=== PATIENT | male | born 1950 | race Caucasian/White ===

== ENCOUNTER 2016-07-05 22:06 | Inpatient (IN) | payer MEDICARE, OTHER ==
[~2016-07-05] VITALS: Ht 180.3 cm; Wt 127.1 kg
[~2016-07-05 22:06] MED LIST: AMITRIPTYLINE H25 M1 PO; ASPIRIN 81M81 MG/TA2 PO; ATIVAN 0.50.5 MG/TAB PO; B & O SUPPRETTE1 SU1 RC; BACTRIM DS 8001 TAB PO; CECLOR PULVULE500 MG PO; CEFTIN500 MG PO; COLACE 100100 MG/CAP PO; COZAAR100 MG PO; CRANBERRY1 CAP PO; CYMBALTA 30MG30 MG PO; DESYREL 50MG50 MG PO; DIFLUCAN 100MG100 MG PO; DIFLUCAN200 MG PO; DULCOLAX S10 MG/SUPP RC; FISH OIL 1000MG1 CAP PO; FISH OIL PO; GLUCOSAMINE; GLYCERIN S1 SUPP.REC RC; HCTZ 25MG TAB25 MG PO; HYZAAR 25 MG-101 TAB PO; JANUVIA 100MG100 MG PO; KLOR-CON 1010 MEQ PO; KLOR-CON M2020 MEQ PO; LANTUS100 U/ML SC; LASIX 40MG TABL40 MG PO; LEVAQUIN 750MG750 M1 PO; LIPITOR 10MG10 MG PO; LOVENOX 4040 MG/0.4 SQ; MELATONIN3 MG PO; MIRALAX PA17 GM/Dose PO; NEURONTIN100 MG/CAP PO; NEURONTIN300 MG/CAP PO; NEUROPATHY SUPPORT; NIZORAL CREAM15 GM TP; NOVLOG SQ; OMNICEF 300MG300 MG PO; PERFECT BIOTICS PO; PHENERGAN W/CO120 ML PO; PREDNISONE10 MG PO; PREDNISONE20 MG PO; PREVACID30 MG PO; PRIL40 PO; PROBIOTIC-MAJOR PO; RITE AID KRILL500 MG PO; SENOKOT S 50 MG1 TAB PO; SENOKOT8.6 MG PO; STIOLTO RESPIMAT4 GM IH; STOOL SOFTENER100 M2 PO; THE MEDICINE S200 M2 PO; THEO-24 20200 MG/CAP PO; TUMS500 MG PO; ULTRAM 50MG TAB50 MG PO; VITAMIN D 1001000 IU PO; VITAMIN D32000 I1 PO; VITAMIN K0.1 MG PO; VOLTAREN 75 DR75 MG PO; ZANAFLEX CAPSULE4 MG PO; ZOFRAN 4MG T4 MG/TAB PO; ZOLOFT 100MG100 MG PO; [UNRECOGNIZED DRUG - OTHER] PO
[2016-07-05 23:34] LABS: HEMATOCRIT 39.6 % (42.0-52.0); HEMOGLOBIN 13.1 g/dl (13.5-18.0); MEAN CELL VOLUME 87 fl (80.0-100.0); MEAN CORPUSCULAR HEMOGLOBIN 29 pg (27.0-31.0); MEAN CORPUSCULAR HGB CONC 33 g/dl (33.0-37.0); MEAN PLATELET VOLUME 9.2 fl (7.4-10.4); PLATELET COUNT 149 K/mm3 (130-400); RED BLOOD COUNT 4.54 M/mm3 (4.20-5.60)
[2016-07-05 23:36] LABS: WHITE BLOOD COUNT 20.2 K/mm3 (4.8-10.8)
[2016-07-05 23:37] LABS: ADD PATHOLOGY DIFF REVIEW NO
[2016-07-05 23:47] LABS: ADJUSTED CALCIUM 8.9 mg/dL (8.4-10.2); ALBUMIN 4.1 gm/dL (3.5-5.0); BILIRUBIN,TOTAL 1.2 mg/dL (0.0-1.0); CREATININE, serum 0.94 mg/dL (0.66-1.25); POTASSIUM 3.6 mmol/L (3.4-5.0); TOTAL PROTEIN 6.6 gm/dL (6.4-8.2)
[2016-07-06 00:47] LABS: BAND 38 % (0-10); NEUTROPHILS 57 % (42.0-75.2); TOTAL CELLS COUNTED 100
[2016-07-06 01:53] VITALS: BP 123/67; PULSE 101
[2016-07-06 04:20] VITALS: BP 147/66; PULSE 95; TEMP 97.9
[2016-07-06 07:25] LABS: HEMATOCRIT 37.7 % (42.0-52.0); HEMOGLOBIN 12.4 g/dl (13.5-18.0); MEAN CELL VOLUME 88 fl (80.0-100.0); MEAN CORPUSCULAR HEMOGLOBIN 29 pg (27.0-31.0); MEAN CORPUSCULAR HGB CONC 33 g/dl (33.0-37.0); MEAN PLATELET VOLUME 9.5 fl (7.4-10.4); PLATELET COUNT 141 K/mm3 (130-400); RED BLOOD COUNT 4.31 M/mm3 (4.20-5.60); REDCELL DISTRIBUTION WIDTH-CV 15.1 % (11.5-14.5); WHITE BLOOD COUNT 18.7 K/mm3 (4.8-10.8)
[2016-07-06 07:49] LABS: ADD PATHOLOGY DIFF REVIEW NO
[2016-07-06 07:53] LABS: CALCIUM 8.5 mg/dL (8.4-10.2); CREATININE, serum 0.84 mg/dL (0.66-1.25); POTASSIUM 3.3 mmol/L (3.4-5.0)
[2016-07-06 08:09] VITALS: BP 125/72; PULSE 107; TEMP 99.4
[2016-07-06 09:05] LABS: ANISOCYTOSIS 1+; BAND 5 % (0-10); EOSINOPHIL 1 % (0-4); NEUTROPHILS 75 % (42.0-75.2); PLATELET ESTIMATE NORMAL (NORMAL); POLYCHROMASIA 1+; TOTAL CELLS COUNTED 100
[2016-07-06 11:53] VITALS: BP 136/66; PULSE 106; TEMP 98.3
[2016-07-06 15:36] VITALS: BP 128/76; PULSE 96; TEMP 98
[2016-07-06 19:30] VITALS: BP 134/77; PULSE 101; TEMP 98.6
[2016-07-07] VITALS (7 sets, daily range): BP systolic 109–156; BP diastolic 53–79; PULSE 74–97; TEMP 93–98.7
[2016-07-07 14:07] LABS: BASO % 0.3 % (0.0-2.0); EOS # 0.1 (0.0-0.7); EOS % 0.7 % (0-4.0); GRAN # 9.2 (1.4-6.5); GRAN % 86.3 % (42.2-75.2); HEMATOCRIT 37.3 % (42.0-52.0); HEMOGLOBIN 12.1 g/dl (13.5-18.0); LYMPH # 0.8 (1.2-3.4); LYMPH % 7.7 % (20.0-51.0); MEAN CELL VOLUME 89 fl (80.0-100.0); MEAN CORPUSCULAR HEMOGLOBIN 29 pg (27.0-31.0); MEAN CORPUSCULAR HGB CONC 32 g/dl (33.0-37.0); MEAN PLATELET VOLUME 9.3 fl (7.4-10.4); MONO # 0.5 (0.1-0.6); MONO % 4.2 % (1.7-9.3); PLATELET COUNT 143 K/mm3 (130-400); REDCELL DISTRIBUTION WIDTH-CV 15.3 % (11.5-14.5); WHITE BLOOD COUNT 10.7 K/mm3 (4.8-10.8)
[2016-07-07 14:15] LABS: ADJUSTED CALCIUM 8.6 mg/dL (8.4-10.2); ALBUMIN 3.7 gm/dL (3.5-5.0); BILIRUBIN,TOTAL 0.8 mg/dL (0.0-1.0); CALCIUM 8.4 mg/dL (8.4-10.2); CREATININE, serum 0.9 mg/dL (0.66-1.25); POTASSIUM 3.7 mmol/L (3.4-5.0); TOTAL PROTEIN 6.4 gm/dL (6.4-8.2)
[2016-07-08 06:36] VITALS: BP 152/85; PULSE 84; TEMP 98.4
[2016-07-08 08:43] VITALS: BP 159/84; PULSE 76; TEMP 98.3
[2016-07-08 12:05] VITALS: BP 141/72; PULSE 72; TEMP 98.1
[2016-07-08] MEDS ORDERED: DOXYCYCLINE 10100 MG PO (15:42)
== END 2016-07-08 17:01 | disposition home or self-care (01) | DRG 603 ==
LOC: COL.ER 22:06 → MEDICAL 23:58
PROVIDERS: Emergency Medicine; Family Medicine; Internal Medicine Cardiovascular Disease
DX: L03.116 Cellulitis of left lower limb (principal); G37.3 Acute transverse myelitis in demyelinating disease of central nervous system; L03.115 Cellulitis of right lower limb; A46 Erysipelas; J44.9 Chronic obstructive pulmonary disease, unspecified; K21.9 Gastro-esophageal reflux disease without esophagitis; Z87.891 Personal history of nicotine dependence
CPT/HCPCS: 99223-AI; 99233-AI; 99239; J1650; J2543; J3370; J7030; J7050; J7512

== ENCOUNTER 2016-12-30 13:49 | Inpatient (IN) | payer MEDICARE, OTHER ==
[~2016-12-30] VITALS: Ht 180.3 cm; Wt 114.8 kg
[~2016-12-30 13:49] MED LIST changes: +DOXYCYCLINE 10100 MG PO
[2016-12-30 14:58] LABS: BASO # 0.1 (0.0-0.2); BASO % 0.3 % (0.0-2.0); EOS # 0.1 (0.0-0.7); EOS % 0.5 % (0-4.0); GRAN # 15.3 (1.4-6.5); GRAN % 87.7 % (42.2-75.2); HEMATOCRIT 38.5 % (42.0-52.0); HEMOGLOBIN 12.8 g/dl (13.5-18.0); LYMPH % 5.5 % (20.0-51.0); MEAN CELL VOLUME 87 fl (80.0-100.0); MEAN CORPUSCULAR HEMOGLOBIN 29 pg (27.0-31.0); MEAN CORPUSCULAR HGB CONC 33 g/dl (33.0-37.0); MEAN PLATELET VOLUME 9.8 fl (7.4-10.4); MONO % 5.5 % (1.7-9.3); PLATELET COUNT 213 K/mm3 (130-400); RED BLOOD COUNT 4.41 M/mm3 (4.20-5.60); WHITE BLOOD COUNT 17.4 K/mm3 (4.8-10.8)
[2016-12-30 15:02] LABS: INR 1.1 (0.8-3.0); PROTHROMBIN TIME 11.8 SECONDS (9.7-12.8)
[2016-12-30 15:05] LABS: PARTIAL THROMBOPLASTIN TIME 26.4 SECONDS (26.0-37.0)
[2016-12-30 15:07] LABS: ADJUSTED CALCIUM 8.9 mg/dL (8.4-10.2); ALANINE AMINOTRANSFERASE 45 U/L (21-72); ALBUMIN 4.5 gm/dL (3.5-5.0); ALKALINE PHOSPHATASE 105 U/L (50-136); ANION GAP 13 mmol/L (7-16); BILIRUBIN,TOTAL 0.7 mg/dL (0.0-1.0); BLOOD UREA NITROGEN 22 mg/dL (9-20); CALCIUM 9.3 mg/dL (8.4-10.2); CARBON DIOXIDE 28 mmol/L (22-30); CHLORIDE 98 mmol/L (98-107); CREATININE, serum 1.23 mg/dL (0.66-1.25); GLUCOSE 115 mg/dL (74-106); POTASSIUM 3.8 mmol/L (3.4-5.0); SODIUM 139 mmol/L (137-145); TOTAL PROTEIN 7.4 gm/dL (6.4-8.2)
[2016-12-30 15:21] LABS: TROPONIN-I < 0.012 ng/mL (0.000-0.034)
[2016-12-30] MEDS ORDERED: LASIX 40MG TABL40 MG PO (15:53)
[2016-12-30] MEDS ORDERED: LIPITOR 10MG10 MG PO (15:53)
[2016-12-30] MEDS ORDERED: ZOLOFT 100MG100 MG PO (15:54)
[2016-12-30] MEDS ORDERED: PRIL40 PO (15:54)
[2016-12-30] MEDS ORDERED: PROBIOTIC FORMU1 CAP PO (15:55)
[2016-12-30] MEDS ORDERED: ASPIRIN 81M81 MG/TA2 PO (15:55)
[2016-12-30] MEDS ORDERED: THEO-DUR 2200 MG/TAB PO (15:56)
[2016-12-30] MEDS ORDERED: OMEGA-3 1000 MG1 CAP PO (15:56)
[2016-12-30] MEDS ORDERED: HYZAAR 25 MG-101 TAB PO (15:57)
[2016-12-30] MEDS ORDERED: ZANAFLEX 4MG TAB4 MG PO (15:58)
[2016-12-30] MEDS ORDERED: STIOLTO RESPIMAT4 GM IH (15:58)
[2016-12-30] MEDS ORDERED: VOLTAREN 75 DR75 MG PO (15:58)
[2016-12-30] MEDS ORDERED: AMITRIPTYLINE H25 M1 PO (15:59)
[2016-12-30] MEDS ORDERED: VITAMIN K0.1 MG PO (15:59)
[2016-12-30] MEDS ORDERED: THE MEDICINE S200 M2 PO (16:00)
[2016-12-30] MEDS ORDERED: VITAMIN D31000 I1 PO (16:00)
[2016-12-30] MEDS ORDERED: GLYCERIN S1 SUPP.REC RC (16:01)
[2016-12-30 16:39] LABS: COLLECTION METHOD CATHETER
[2016-12-30 17:05] LABS: BUDDING YEAST Present /hpf; MUCOUS Present /lpf; PH 7 (5-8); SQUAMOUS EPITHELIAL 0-2 /hpf; URINE APPEARANCE Hazy; URINE BACTERIA Rare /hpf; URINE BILIRUBIN Negative (NEGATIVE); URINE BLOOD Negative (NEGATIVE); URINE COLOR Yellow; URINE GLUCOSE Negative (NEGATIVE); URINE KETONE Negative (NEGATIVE); URINE LEUKOCYTE ESTERASE 3+ (NEGATIVE); URINE PROTEIN(semi-quant) Negative (NEGATIVE); URINE UROBILINOGEN Negative (NEGATIVE)
[2016-12-30 17:12] LABS: URINE WBC >50 /hpf
[2016-12-30 20:29] VITALS: BP 125/58; PULSE 103; TEMP 98.3
[2016-12-31] VITALS (8 sets, daily range): BP systolic 108–144; BP diastolic 45–66; PULSE 70–103; TEMP 97.6–98.8
[2016-12-31 06:59] LABS: BASO % 0.3 % (0.0-2.0); EOS # 0.2 (0.0-0.7); GRAN # 8.2 (1.4-6.5); GRAN % 71.5 % (42.2-75.2); LYMPH # 2.2 (1.2-3.4); LYMPH % 19.3 % (20.0-51.0); MEAN CELL VOLUME 89 fl (80.0-100.0); MEAN CORPUSCULAR HGB CONC 32 g/dl (33.0-37.0); MONO # 0.7 (0.1-0.6); MONO % 6.5 % (1.7-9.3); PLATELET COUNT 178 K/mm3 (130-400); RED BLOOD COUNT 3.93 M/mm3 (4.20-5.60); WHITE BLOOD COUNT 11.4 K/mm3 (4.8-10.8)
[2016-12-31 07:00] LABS: HEMATOCRIT 34.8 % (42.0-52.0); HEMOGLOBIN 11.2 g/dl (13.5-18.0); MEAN CORPUSCULAR HEMOGLOBIN 28 pg (27.0-31.0)
[2016-12-31 07:20] LABS: CALCIUM 8.1 mg/dL (8.4-10.2); CREATININE, serum 0.96 mg/dL (0.66-1.25); POTASSIUM 3.4 mmol/L (3.4-5.0)
[2017-01-01 03:46] VITALS: BP 110/52; BP 87/55; PULSE 62; TEMP 97.8
[2017-01-01 06:38] LABS: BASO % 0.3 % (0.0-2.0); EOS # 0.3 (0.0-0.7); EOS % 4.3 % (0-4.0); GRAN # 4.1 (1.4-6.5); GRAN % 54.8 % (42.2-75.2); LYMPH # 2.3 (1.2-3.4); LYMPH % 31.2 % (20.0-51.0); MEAN CELL VOLUME 90 fl (80.0-100.0); MEAN CORPUSCULAR HGB CONC 32 g/dl (33.0-37.0); MEAN PLATELET VOLUME 9.8 fl (7.4-10.4); MONO # 0.7 (0.1-0.6); MONO % 8.9 % (1.7-9.3); PLATELET COUNT 177 K/mm3 (130-400); RED BLOOD COUNT 3.66 M/mm3 (4.20-5.60); WHITE BLOOD COUNT 7.5 K/mm3 (4.8-10.8)
[2017-01-01 06:41] LABS: HEMATOCRIT 32.8 % (42.0-52.0); HEMOGLOBIN 10.5 g/dl (13.5-18.0); MEAN CORPUSCULAR HEMOGLOBIN 29 pg (27.0-31.0)
[2017-01-01 06:52] LABS: CALCIUM 8.2 mg/dL (8.4-10.2); CREATININE, serum 0.87 mg/dL (0.66-1.25); POTASSIUM 3.7 mmol/L (3.4-5.0)
[2017-01-01 07:00] VITALS: BP 123/64; PULSE 75; TEMP 97.7
[2017-01-01] MEDS ORDERED: CIPRO 500MG TA500 MG PO (09:27)
[2017-01-01 11:10] VITALS: BP 142/71; PULSE 76; TEMP 97.7
== END 2017-01-01 11:47 | disposition home or self-care (01) | DRG 872 ==
LOC: COL.ER 13:49 → MEDICAL 17:21
PROVIDERS: Emergency Medicine; Family Medicine; Physician Assistant
DX: A41.9 Sepsis, unspecified organism (principal); N39.0 Urinary tract infection, site not specified; G37.3 Acute transverse myelitis in demyelinating disease of central nervous system; N17.9 Acute kidney failure, unspecified; J44.9 Chronic obstructive pulmonary disease, unspecified; I10 Essential (primary) hypertension; K21.9 Gastro-esophageal reflux disease without esophagitis; E78.5 Hyperlipidemia, unspecified; N31.9 Neuromuscular dysfunction of bladder, unspecified; Z87.891 Personal history of nicotine dependence
CPT/HCPCS: 99222-AI; 99231-AI; 99239; G0378; G8978-GP; G8979-GP; J0696; J1650; J7030; Q9967

== ENCOUNTER 2017-01-15 14:42 | Outpatient (RCR) | payer MEDICARE, OTHER ==
[~2017-01-15 14:42] MED LIST changes: +CIPRO 500MG TA500 MG PO; +OMEGA-3 1000 MG1 CAP PO; +PROBIOTIC FORMU1 CAP PO; +THEO-DUR 2200 MG/TAB PO; +VITAMIN D31000 I1 PO; +ZANAFLEX 4MG TAB4 MG PO
== END 2017-01-16 14:51 ==
LOC: MKS.ESL.PT 14:42
DX: G37.3 Acute transverse myelitis in demyelinating disease of central nervous system (principal)
CPT/HCPCS: G8978-GP; G8979-GP

== ENCOUNTER 2017-01-28 18:33 | Inpatient (IN) | payer MEDICARE, OTHER ==
[~2017-01-28] VITALS: Ht 180.3 cm; Wt 122.6 kg
[2017-01-28 19:23] LABS: BASO % 0.2 % (0.0-2.0); EOS # 0.1 (0.0-0.7); EOS % 0.8 % (0-4.0); GRAN # 13.9 (1.4-6.5); GRAN % 86.1 % (42.2-75.2); HEMATOCRIT 40.5 % (42.0-52.0); HEMOGLOBIN 13.4 g/dl (13.5-18.0); LYMPH # 0.9 (1.2-3.4); LYMPH % 5.6 % (20.0-51.0); MEAN CELL VOLUME 87 fl (80.0-100.0); MEAN CORPUSCULAR HEMOGLOBIN 29 pg (27.0-31.0); MEAN CORPUSCULAR HGB CONC 33 g/dl (33.0-37.0); MEAN PLATELET VOLUME 9.6 fl (7.4-10.4); MONO # 1.2 (0.1-0.6); MONO % 7.1 % (1.7-9.3); PLATELET COUNT 208 K/mm3 (130-400); RED BLOOD COUNT 4.67 M/mm3 (4.20-5.60); WHITE BLOOD COUNT 16.1 K/mm3 (4.8-10.8)
[2017-01-28 19:34] LABS: COLLECTION METHOD CATHETER
[2017-01-28 19:36] LABS: ADJUSTED CALCIUM 8.5 mg/dL (8.4-10.2); ALBUMIN 4.9 gm/dL (3.5-5.0); BILIRUBIN,TOTAL 0.6 mg/dL (0.0-1.0); CALCIUM 9.2 mg/dL (8.4-10.2); POTASSIUM 3.1 mmol/L (3.4-5.0); TOTAL PROTEIN 7.7 gm/dL (6.4-8.2)
[2017-01-28 19:37] LABS: C-REACTIVE PROTEIN 0.5 mg/dL (0.0-0.9)
[2017-01-28 19:43] LABS: MUCOUS Present /lpf; PH 6 (5-8); SQUAMOUS EPITHELIAL 0-2 /hpf; URINE APPEARANCE Clear; URINE BACTERIA Rare /hpf; URINE BILIRUBIN Negative (NEGATIVE); URINE BLOOD Negative (NEGATIVE); URINE COLOR Yellow; URINE GLUCOSE Negative (NEGATIVE); URINE KETONE Negative (NEGATIVE); URINE LEUKOCYTE ESTERASE 3+ (NEGATIVE); URINE PROTEIN(semi-quant) Negative (NEGATIVE); URINE RBC 0-2 /hpf; URINE UROBILINOGEN Negative (NEGATIVE)
[2017-01-28 19:44] LABS: URINE WBC >50 /hpf
[2017-01-28 22:17] LABS: MAGNESIUM 1.7 mg/dL (1.6-2.3)
[2017-01-28 23:21] VITALS: BP 101/64; PULSE 96; TEMP 98.5
[2017-01-29 05:24] VITALS: BP 114/65; PULSE 87; TEMP 98
[2017-01-29 07:04] LABS: BASO % 0.3 % (0.0-2.0); EOS # 0.3 (0.0-0.7); GRAN # 8.7 (1.4-6.5); GRAN % 69.6 % (42.2-75.2); LYMPH # 2.4 (1.2-3.4); LYMPH % 19.3 % (20.0-51.0); MEAN CELL VOLUME 88 fl (80.0-100.0); MEAN CORPUSCULAR HGB CONC 32 g/dl (33.0-37.0); MONO # 1.1 (0.1-0.6); MONO % 8.4 % (1.7-9.3); PLATELET COUNT 200 K/mm3 (130-400); RED BLOOD COUNT 4.14 M/mm3 (4.20-5.60); WHITE BLOOD COUNT 12.6 K/mm3 (4.8-10.8)
[2017-01-29 07:06] LABS: HEMATOCRIT 36.6 % (42.0-52.0); HEMOGLOBIN 11.8 g/dl (13.5-18.0); MEAN CORPUSCULAR HEMOGLOBIN 29 pg (27.0-31.0)
[2017-01-29 07:18] LABS: CALCIUM 8.5 mg/dL (8.4-10.2); CREATININE, serum 0.91 mg/dL (0.66-1.25); POTASSIUM 3.5 mmol/L (3.4-5.0)
[2017-01-29 08:29] VITALS: BP 125/66; PULSE 89; TEMP 97.6
[2017-01-29 14:12] VITALS: BP 134/65; PULSE 80; TEMP 98
[2017-01-29 17:03] VITALS: BP 141/63; PULSE 83; TEMP 98.2
[2017-01-29 22:08] VITALS: BP 142/75; PULSE 76; TEMP 98.2
[2017-01-30] VITALS (8 sets, daily range): BP systolic 95–150; BP diastolic 46–78; PULSE 70–94; TEMP 97.7–98.4
[2017-01-30 06:59] LABS: BASO % 0.1 % (0.0-2.0); EOS # 0.3 (0.0-0.7); EOS % 4.1 % (0-4.0); GRAN # 4.4 (1.4-6.5); GRAN % 56.1 % (42.2-75.2); LYMPH # 2.4 (1.2-3.4); LYMPH % 30.5 % (20.0-51.0); MEAN CELL VOLUME 90 fl (80.0-100.0); MEAN CORPUSCULAR HGB CONC 32 g/dl (33.0-37.0); MEAN PLATELET VOLUME 9.8 fl (7.4-10.4); MONO # 0.7 (0.1-0.6); MONO % 8.8 % (1.7-9.3); PLATELET COUNT 171 K/mm3 (130-400); RED BLOOD COUNT 4.05 M/mm3 (4.20-5.60); WHITE BLOOD COUNT 7.8 K/mm3 (4.8-10.8)
[2017-01-30 07:06] LABS: HEMOGLOBIN 11.6 g/dl (13.5-18.0); MEAN CORPUSCULAR HEMOGLOBIN 29 pg (27.0-31.0)
[2017-01-30 07:07] LABS: HEMATOCRIT 36.3 % (42.0-52.0)
[2017-01-30 07:15] LABS: CALCIUM 8.4 mg/dL (8.4-10.2); CREATININE, serum 0.87 mg/dL (0.66-1.25); MAGNESIUM 1.8 mg/dL (1.6-2.3); POTASSIUM 3.9 mmol/L (3.4-5.0)
[2017-01-31 02:07] VITALS: BP 119/55; PULSE 71; TEMP 97.7
[2017-01-31 05:31] VITALS: BP 140/54; BP 151/44; PULSE 71; TEMP 97.6
[2017-01-31 07:34] VITALS: BP 142/73; PULSE 94; TEMP 97.7
[2017-01-31 07:43] LABS: BASO % 0.4 % (0.0-2.0); EOS # 0.4 (0.0-0.7); EOS % 4.9 % (0-4.0); GRAN # 4.4 (1.4-6.5); GRAN % 55.4 % (42.2-75.2); LYMPH # 2.4 (1.2-3.4); LYMPH % 30.8 % (20.0-51.0); MEAN CELL VOLUME 88 fl (80.0-100.0); MEAN CORPUSCULAR HGB CONC 33 g/dl (33.0-37.0); MEAN PLATELET VOLUME 9.9 fl (7.4-10.4); MONO # 0.6 (0.1-0.6); PLATELET COUNT 175 K/mm3 (130-400); RED BLOOD COUNT 4.07 M/mm3 (4.20-5.60); WHITE BLOOD COUNT 7.9 K/mm3 (4.8-10.8)
[2017-01-31 07:45] LABS: HEMATOCRIT 35.6 % (42.0-52.0); HEMOGLOBIN 11.6 g/dl (13.5-18.0); MEAN CORPUSCULAR HEMOGLOBIN 29 pg (27.0-31.0)
[2017-01-31 07:54] LABS: CALCIUM 8.7 mg/dL (8.4-10.2); CREATININE, serum 0.89 mg/dL (0.66-1.25); POTASSIUM 3.8 mmol/L (3.4-5.0)
[2017-01-31 10:36] VITALS: BP 144/75; PULSE 82; TEMP 97.8
[2017-01-31] MEDS ORDERED: BACTRIM DS 8001 TAB PO (11:55)
== END 2017-01-31 13:45 | disposition home or self-care (01) | DRG 699 ==
LOC: COL.ER 18:33 → SURG 20:20
PROVIDERS: Emergency Medicine; Family Medicine; Nurse Practitioner Family; Physician Assistant
DX: T83.518A Infection and inflammatory reaction due to other urinary catheter, initial encounter (principal); N39.0 Urinary tract infection, site not specified; G37.3 Acute transverse myelitis in demyelinating disease of central nervous system; B96.20 Unspecified Escherichia coli [E. coli] as the cause of diseases classified elsewhere; I10 Essential (primary) hypertension; N31.8 Other neuromuscular dysfunction of bladder; E87.6 Hypokalemia; J44.9 Chronic obstructive pulmonary disease, unspecified; Z87.891 Personal history of nicotine dependence
CPT/HCPCS: 99222-AI; 99232-AI; 99239; J0696; J1650; J7030; Q9967

== ENCOUNTER → 2017-07-02 | Outpatient (CLI) | payer MEDICARE, OTHER | LOC: COL.RAD 11:59 | DX: M47.816 Spondylosis without myelopathy or radiculopathy, lumbar region (principal); G95.89 Other specified diseases of spinal cord | CPT/HCPCS: A9585 ==

== ENCOUNTER → 2017-07-29 | Outpatient (CLI) | payer MEDICARE, OTHER | LOC: COL.RAD 10:41 | DX: K22.8 Other specified diseases of esophagus (principal) ==

== ENCOUNTER 2017-08-27 09:57 | Day surgery (SDC) | payer MEDICARE, OTHER ==
[2017-08-27] VITALS (12 sets, daily range): BP systolic 112–146; BP diastolic 62–77; PULSE 91–112; TEMP 98–98.4
[~2017-08-27] VITALS: Ht 180.3 cm; Wt 114.1 kg
[2017-08-27] MEDS ORDERED: AMITRIPTYLINE H50 M1 PO (11:50)
[2017-08-27] MEDS ORDERED: VOLTAREN 75 DR75 MG PO (11:56)
[2017-08-27] MEDS ORDERED: WELLBUTRIN 100100 MG PO (11:56)
[2017-08-27] MEDS ORDERED: MASON NATURAL2000 IU PO (11:58)
[2017-08-28 03:47] VITALS: BP 122/69; PULSE 88; TEMP 98.5
[2017-08-28 07:26] VITALS: BP 131/69; PULSE 93; TEMP 98.3
== END 2017-08-28 11:19 | disposition home health service (06) ==
LOC: SDCO 09:57 → SURG 15:35 → SDCO 08-28 11:19
DX: K42.9 Umbilical hernia without obstruction or gangrene (principal); K44.9 Diaphragmatic hernia without obstruction or gangrene; K21.9 Gastro-esophageal reflux disease without esophagitis; I10 Essential (primary) hypertension; E78.00 Pure hypercholesterolemia, unspecified; F43.10 Post-traumatic stress disorder, unspecified; F41.9 Anxiety disorder, unspecified; F32.9 Major depressive disorder, single episode, unspecified; J44.9 Chronic obstructive pulmonary disease, unspecified; G47.33 Obstructive sleep apnea (adult) (pediatric); F17.210 Nicotine dependence, cigarettes, uncomplicated; E27.40 Unspecified adrenocortical insufficiency; G89.29 Other chronic pain; D64.9 Anemia, unspecified; Z79.82 Long term (current) use of aspirin; Z90.49 Acquired absence of other specified parts of digestive tract; Z85.828 Personal history of other malignant neoplasm of skin
CPT/HCPCS: OP; C1713; J0690; J1100; J1885; J2405; J2704; J3010; J7120

== ENCOUNTER 2017-10-17 11:00 | Observation (INO) | payer MEDICARE, OTHER ==
[2017-10-17] VITALS (9 sets, daily range): BP systolic 121–146; BP diastolic 64–84; PULSE 71–96; TEMP 97.8–99.1
[~2017-10-17] VITALS: Ht 180.3 cm; Wt 116.6 kg
[~2017-10-17 11:00] MED LIST changes: +AMITRIPTYLINE H50 M1 PO; +MASON NATURAL2000 IU PO; +WELLBUTRIN 100100 MG PO
[2017-10-17] MEDS ORDERED: VITAMIN K0.1 MG PO (11:29)
[2017-10-17] MEDS ORDERED: MELATONIN5 M1 SL (11:29)
[2017-10-17] MEDS ORDERED: CEFACLOR500 M2 PO (11:30)
[2017-10-18 00:39] VITALS: BP 117/63; PULSE 99; TEMP 98.3
[2017-10-18 04:48] VITALS: BP 136/67; PULSE 74; TEMP 98.1
[2017-10-18 07:41] VITALS: BP 129/75; PULSE 89; TEMP 98.1
== END 2017-10-18 13:25 | disposition home or self-care (01) ==
LOC: SDCO 11:00 → INPTSU 15:43 → SURG 16:20
DX: N31.2 Flaccid neuropathic bladder, not elsewhere classified (principal); J44.9 Chronic obstructive pulmonary disease, unspecified; I10 Essential (primary) hypertension; G47.30 Sleep apnea, unspecified; Z87.442 Personal history of urinary calculi; G62.9 Polyneuropathy, unspecified; Z79.82 Long term (current) use of aspirin; Z79.899 Other long term (current) drug therapy; Z87.891 Personal history of nicotine dependence
CPT/HCPCS: G0378; J0690; J1100; J2405; J2704; J2765; J3010; J7120

== ENCOUNTER 2017-10-21 15:54 | Observation (INO) | payer MEDICARE, OTHER ==
[~2017-10-21] VITALS: Ht 180.3 cm; Wt 116.7 kg
[~2017-10-21 15:54] MED LIST changes: +CEFACLOR500 M2 PO; +MELATONIN5 M1 SL
[2017-10-30 15:36] VITALS: BP 136/75; PULSE 83; TEMP 98.7
[2017-10-30] MEDS ORDERED: TEGRETOL 2200 MG/TA1 PO (15:57)
[2017-10-30 19:14] VITALS: BP 126/80; PULSE 82; TEMP 98.1
[2017-10-31 03:30] VITALS: BP 143/69; PULSE 95; TEMP 98.9
[2017-10-31 08:13] VITALS: BP 129/78; PULSE 99; TEMP 98.4
[2017-10-31 11:46] VITALS: BP 122/75; PULSE 89; TEMP 98.4
[2017-10-31 14:40] VITALS: BP 127/75; PULSE 90; TEMP 97.9
[2017-10-31 14:45] VITALS: BP 126/75; PULSE 98
[2017-10-31 15:00] VITALS: BP 121/71; PULSE 90
== END 2017-10-31 15:18 | disposition home or self-care (01) ==
LOC: EDSTATUS 10-30 14:00 → SDCO 10-30 14:00 → MEDICAL 10-30 14:07 → SDCO 10-31 14:00 → INPTSU 10-31 14:45
DX: Z12.11 Encounter for screening for malignant neoplasm of colon (principal); K57.30 Diverticulosis of large intestine without perforation or abscess without bleeding; K21.9 Gastro-esophageal reflux disease without esophagitis; K59.00 Constipation, unspecified; F41.9 Anxiety disorder, unspecified; F32.9 Major depressive disorder, single episode, unspecified; J44.9 Chronic obstructive pulmonary disease, unspecified; G47.33 Obstructive sleep apnea (adult) (pediatric); R19.7 Diarrhea, unspecified; F43.10 Post-traumatic stress disorder, unspecified; E78.00 Pure hypercholesterolemia, unspecified; G89.29 Other chronic pain; K44.9 Diaphragmatic hernia without obstruction or gangrene; D64.9 Anemia, unspecified; K62.5 Hemorrhage of anus and rectum; G37.3 Acute transverse myelitis in demyelinating disease of central nervous system; R26.81 Unsteadiness on feet; Z79.82 Long term (current) use of aspirin; Z90.49 Acquired absence of other specified parts of digestive tract; Z98.890 Other specified postprocedural states; Z91.81 History of falling; Z86.010 Personal history of colon polyps; Z87.891 Personal history of nicotine dependence
CPT/HCPCS: J2704

== ENCOUNTER 2018-01-25 23:49 | Emergency (ER) | payer MEDICARE, OTHER ==
[~2018-01-25] VITALS: Ht 180.3 cm; Wt 113.6 kg
[~2018-01-25 23:49] MED LIST changes: +COENZYME Q-10100 M1 PO; +TEGRETOL 2200 MG/TA1 PO
[2018-01-25 23:53] VITALS: BP 140/76; TEMP 97.5
[2018-01-26] MEDS ORDERED: ASPIRIN 81M81 MG/TA2 PO (00:35)
[2018-01-26] MEDS ORDERED: COZAAR100 MG PO (00:36)
[2018-01-26 01:14] LABS: COLLECTION METHOD CATHETER
[2018-01-26 01:34] LABS: BUDDING YEAST Present /hpf; MUCOUS Present /lpf; PH 6 (5-8); SQUAMOUS EPITHELIAL None Seen /hpf; URINE APPEARANCE Cloudy; URINE BACTERIA Rare /hpf; URINE BILIRUBIN Negative (NEGATIVE); URINE BLOOD 2+ (NEGATIVE); URINE COLOR Yellow; URINE GLUCOSE Negative (NEGATIVE); URINE KETONE Negative (NEGATIVE); URINE LEUKOCYTE ESTERASE 3+ (NEGATIVE); URINE NITRATE Negative (NEGATIVE); URINE PROTEIN(semi-quant) 2+ (NEGATIVE); URINE RBC >50 /hpf
[2018-01-26] MEDS ORDERED: OMNICEF 300MG300 MG PO (01:44)
[2018-01-26 01:56] VITALS: PULSE 87
[2018-01-28] MEDS ORDERED: AMOXICILLIN 50500 MG PO (20:11)
== END 2018-01-26 02:00 | disposition home or self-care (01) ==
LOC: COL.ER 23:49
PROVIDERS: Emergency Medicine
DX: N39.0 Urinary tract infection, site not specified (principal); I10 Essential (primary) hypertension; E78.5 Hyperlipidemia, unspecified; Z90.49 Acquired absence of other specified parts of digestive tract; Z98.890 Other specified postprocedural states

== ENCOUNTER → 2020-01-13 | Outpatient (CLI) | payer MEDICARE, OTHER ==
[~2020-01-13] MED LIST changes: +AMOXICILLIN 50500 MG PO
== END ==
LOC: COL.RAD 14:08
DX: N31.2 Flaccid neuropathic bladder, not elsewhere classified (principal)

== ENCOUNTER → 2021-05-17 | Outpatient (CLI) | payer MEDICARE, OTHER | LOC: COL.RAD 13:06 | DX: N31.2 Flaccid neuropathic bladder, not elsewhere classified (principal); N28.1 Cyst of kidney, acquired ==

== ENCOUNTER 2021-06-22 12:43 | Day surgery (SDC) | payer MEDICARE, OTHER ==
[~2021-06-22] VITALS: Ht 180.3 cm; Wt 113.6 kg
[2021-06-22 13:53] VITALS: BP 153/81; PULSE 89; TEMP 98
[2021-06-22] MEDS ORDERED: TOPAMAX50 MG PO (14:21)
[2021-06-22] MEDS ORDERED: LAMICTAL 25MG T25 MG PO (14:22)
[2021-06-22] MEDS ORDERED: ZANAFLEX CAPSULE4 MG PO (14:24)
[2021-06-22] MEDS ORDERED: ZOLOFT 100MG100 MG PO (14:25)
[2021-06-22] MEDS ORDERED: METHENMAND1 PO (14:26)
[2021-06-22] MEDS ORDERED: ZYRTEC 10MG10 MG PO (14:27)
[2021-06-22] MEDS ORDERED: VITAMIN D31000 I1 PO (14:28)
[2021-06-22] MEDS ORDERED: VITAMIN K2100 MCG PO (14:29)
[2021-06-22] MEDS ORDERED: MULTI VITAMINS1 TAB PO (14:30)
[2021-06-22] MEDS ORDERED: ASHWAGANDHA500 MG PO (14:33)
[2021-06-22] MEDS ORDERED: TURMERIC500 MG PO (14:33)
[2021-06-22] MEDS ORDERED: TUMS ULTRA ST1000 MG PO (14:34)
[2021-06-22] MEDS ORDERED: CRANBERRY500 M3 PO (14:34)
[2021-06-22 15:40] VITALS: BP 120/75; PULSE 76
--- NOTE | 2021-06-22 15:40 | NUR ---
Patient returns to room 1 per cart from PACU accompanied by Melvi CHRISTIANSON and is awake and alert. IV fluids infusing. Suprapubic catheter patent with peach colored urine with sediment noted. Gauze sponge around the suprapubic clean and dry. Temp 97.0. IV fluids infusing and site is free of redness. Siderails up x2. Spouse in room. Drinking water. Denies pain or nausea.
[2021-06-22 15:55] VITALS: BP 146/71; PULSE 76
--- NOTE | 2021-06-22 15:55 | NUR ---
Continues to sip on water. Denies pain or nausea.
[2021-06-22 16:10] VITALS: BP 143/73; PULSE 71
[2021-06-22 16:20] VITALS: BP 120/75; PULSE 78; TEMP 98.4
--- NOTE | 2021-06-22 16:20 | NUR ---
IV discontinued and site is free of redness. Suprapubic catheter plugged per patient request and spouse assists patient to dress.
--- NOTE | 2021-06-22 16:33 | NUR ---
Dismissal instructions given and patient voices understanding of these. Provided office number for questions and concerns.
--- NOTE | 2021-06-22 16:39 | NUR ---
Patient dismissed to home driven by spouse and taken to the front door per wheelchair and assisted into vehicle with instructions in hand.
== END 2021-06-22 16:39 | disposition home or self-care (01) ==
LOC: SDCO 12:43
DX: N21.0 Calculus in bladder (principal); N31.2 Flaccid neuropathic bladder, not elsewhere classified; N30.20 Other chronic cystitis without hematuria; Z87.891 Personal history of nicotine dependence
CPT/HCPCS: J0690; J1100; J2405; J2704; J3010; J7120

== ENCOUNTER 2021-07-18 11:28 | Inpatient (IN) | payer MEDICARE, OTHER ==
[2021-07-18] VITALS (8 sets, daily range): BP systolic 83–144; BP diastolic 49–80; PULSE 104–115; TEMP 98.9–101.3
[~2021-07-18] VITALS: Ht 180.3 cm; Wt 113.6 kg
[~2021-07-18 11:28] MED LIST changes: +ASHWAGANDHA500 MG PO; +CRANBERRY500 M3 PO; +LAMICTAL 25MG T25 MG PO; +METHENMAND1 PO; +MULTI VITAMINS1 TAB PO; +TOPAMAX50 MG PO; +TUMS ULTRA ST1000 MG PO; +TURMERIC500 MG PO; +VITAMIN K2100 MCG PO; +ZYRTEC 10MG10 MG PO
[2021-07-18 12:09] LABS: HEMATOCRIT 42.2 % (42.0-52.0); HEMOGLOBIN 13.9 g/dl (13.5-18.0); MEAN CELL VOLUME 90 fl (80.0-100.0); MEAN CORPUSCULAR HEMOGLOBIN 30 pg (27-31); MEAN CORPUSCULAR HGB CONC 33 g/dl (33.0-37.0); MEAN PLATELET VOLUME 9.6 fl (7.4-10.4); PLATELET COUNT 192 K/mm3 (130-400); RED BLOOD COUNT 4.68 M/mm3 (4.20-5.60); REDCELL DISTRIBUTION WIDTH-CV 13.4 % (11.5-14.5)
[2021-07-18 12:24] LABS: ALBUMIN 3.4 gm/dL (3.4-4.8); BILIRUBIN,TOTAL 1.1 mg/dL (0.2-1.2); CALCIUM 8.7 mg/dL (8.4-10.2); CREATININE, serum 2.87 mg/dL (0.72-1.25); POTASSIUM 3.3 mmol/L (3.5-4.5); TOTAL PROTEIN 6.9 gm/dL (6.2-8.1)
[2021-07-18 12:44] LABS: BAND 27 % (0-10); BASOPHIL 1 % (0-2); LYMPHOCYTE 5 % (20.0-51.0); METAMYELOCYTE 2 % (0-0); NEUTROPHILS 63 % (42.0-75.2)
[2021-07-18 12:46] LABS: PLATELET ESTIMATE NORMAL (NORMAL)
--- NOTE | 2021-07-18 17:34 | NUR ---
PT TO ROOM 347 PER BED WITH REPORT FROM DONALD CHRISTIANSON PACU @0294 PT IS A\O X4. DR. CASAS NOTIFIED OF PT STATUS AND HAS PUT IN NEW ORDERS SEE MAY. PT HAS INCREASED TEMP OF 101.3 AND HR OF 114. BOLUS 500 MLS OF NS NOW. TYLE GIVEN PER ORDERS. SUPRAPUBIC CATHETER STAT LOCK MOVED TO A DEPENDENT POSITION. AFTER BOLUS OF FLUIDS AND TYLE TEMP NOW DOWN TO 100.5
[2021-07-18 19:33] LABS: COLLECTION METHOD CATHETER
[2021-07-18 19:43] LABS: PH 5 (5-8); SQUAMOUS EPITHELIAL None Seen /hpf (0-10); URINE APPEARANCE Cloudy (CLEAR/HAZY); URINE BACTERIA Rare /hpf (NONE SEEN); URINE BILIRUBIN Negative (NEGATIVE); URINE BLOOD 3+ (NEGATIVE); URINE COLOR Yellow (YELLOW); URINE GLUCOSE Negative (NEGATIVE); URINE KETONE Negative (NEGATIVE); URINE LEUKOCYTE ESTERASE 3+ (NEGATIVE); URINE NITRATE Negative (NEGATIVE); URINE PROTEIN(semi-quant) 2+ (NEGATIVE); URINE RBC 20-50 /hpf (0-2); URINE UROBILINOGEN Negative (NEGATIVE)
--- NOTE | 2021-07-18 21:00 | NUR ---
PT. sitting up in bed. Pt. is A&OX3, assessment complete. IV to lt. forearm patent, IV fluids infusing per orders. at bedside. Wound noted to rt. heel. Mepilex removed. Unstageable ulcer noted. reports that they have been battling this wound for over a year. New mepilex applied to th area. Heels floated and pressure booties applied. Pt. also has a wound to the rt. second toe, wound is on the side by the great toe. St. 2 pressure ulcer. Telfa applied and wrapped with gauze. Pt.'s rt. medial foot also has some abrasions from fall. No weeping, HÉCTOR. Supra pubic catheter to DD, elizabeth hazy urine noted. Pt. denies pain or other needs, call light within reach.
[2021-07-19 02:53] VITALS: BP 139/64; PULSE 110; TEMP 100.4; TEMP 97.7
[2021-07-19 05:27] LABS: MEAN CELL VOLUME 91 fl (80.0-100.0); MEAN CORPUSCULAR HGB CONC 33 g/dl (33.0-37.0); MEAN PLATELET VOLUME 9.8 fl (7.4-10.4); PLATELET COUNT 156 K/mm3 (130-400); RED BLOOD COUNT 3.85 M/mm3 (4.20-5.60); REDCELL DISTRIBUTION WIDTH-CV 13.7 % (11.5-14.5)
[2021-07-19 05:28] LABS: INR 1.2 (0.8-3.0); PROTHROMBIN TIME 13.9 SECONDS (9.7-12.8)
[2021-07-19 05:40] LABS: ALBUMIN 2.5 gm/dL (3.4-4.8); BILIRUBIN,TOTAL 0.7 mg/dL (0.2-1.2); CALCIUM 7.5 mg/dL (8.4-10.2); CREATININE, serum 1.83 mg/dL (0.72-1.25); TOTAL PROTEIN 5.5 gm/dL (6.2-8.1)
[2021-07-19 05:42] LABS: HEMATOCRIT 35.1 % (42.0-52.0); MEAN CORPUSCULAR HEMOGLOBIN 30 pg (27-31); POTASSIUM 2.9 mmol/L (3.5-4.5)
[2021-07-19 05:43] LABS: HEMOGLOBIN 11.5 g/dl (13.5-18.0)
[2021-07-19 07:04] LABS: BAND 24 % (0-10); LYMPHOCYTE 6 % (20.0-51.0); NEUTROPHILS 65 % (42.0-75.2)
[2021-07-19 07:05] LABS: PLATELET ESTIMATE NORMAL (NORMAL); TOXIC GRANULATION PRESENT
[2021-07-19 08:00] VITALS: BP 144/68; PULSE 103; TEMP 100.1
--- NOTE | 2021-07-19 08:53 | NUR ---
Pt doing well, he has just recently been up walking with PT. Has complaints of bilateral lower extremity pain. Pt reports chronic numbness and tingling with this. Pt is able to ambulate. PT reports that he does not walk much at home and that getting up with therapy twice a day while he is here is more than what he does at home. Pt awaiting breakfast.
--- NOTE | 2021-07-19 09:31 | NUR ---
Social Work student met with patient to discuss discharge planning. [place] the [place] of [place]. He stated, "I live in [place], but I do not live IN [place]." Patient lives at home with his , Kendra(ph#[phone]). Patient sees Dr. Neva Alvarado for primary care, and he states that he receives his medications from [facility]. Patient states that he utilizes a CPAP, cane, walker, and a wheelchair, but he states that he mostly utilizes the cane. Patient states that he is independent with his ADL's. Patient does not have a DPOA-HC on file, and he states that he has not filled one out nor is he interested in completing one. Therefore, SW found next of kin. He is legally to his , Kendra. Patient has two adult kids with Kendra: Federica and Irma. This SW followed up with patient's via phone call for concerns and questions. Kendra told this SW, "I would like him to go to [facility]." Kendra also stated how they had [facility] in the past and there was "nothing wrong with them," but that they are not going to be enough help for him to improve his strength. Kendra also informed this SW how she helps him put on his socks, shoes, and sometimes lined sweatpants. She states that he is independent with everything else. She also mentioned to this SW that she brings him meals, and that "he was so weak last night that I had to feed him." SW informed Kendra that we like to have a second preference incase [facility] cannot accept the patient, and SW listed the three SNF's in [facility]: [facility], [facility], and [facility]. Kend[facility], so SW said they could revisit the topic once we see how the patient does with therapy. Kendra agreed. *Discharge plan: PT/OT recs; SNF vs [facility]*
--- NOTE | 2021-07-19 10:16 | NUR ---
Initial visit attempt; Physical Therapy present, Supervisor Cab left one of her cards letting patient know of the availability of Spiritual Care at our hospital. Supervisor Cab will follow up.
--- NOTE | 2021-07-19 10:30 | NUR ---
Pt very somnolent at this time. He is not able to keep his eyes open long enough to have a conversation. Pt was able to state that he had an accident and was sitting in some poop. Pt was not able to stand due to being too sleepy. Took max 2 assist to get him up enough to clean him up and change out the pad underneath him. Not able to get him back to bed due to him being too somnolent.
--- NOTE | 2021-07-19 11:18 | NUR ---
Social Work student followed up with patient's regarding PT/OT recommending HH. This SW informed Kendra that we could go ahead and send a referral to [facility] and SNF, but that there is a fair chance they could decline the patient and determine him too funcitonal, and then it would be an out of pocket cost for SNF. Kendra voiced understanding of SW and asked if outpatient therapy at [facility] [place]. SW said they could do that because Kendra stated, "We had PT with HH before, and it just wasn't enough rehab." *Discharge plan: Outpatient Therapy at [facility] [place] the [place]*
[2021-07-19 11:47] VITALS: BP 93/48; PULSE 82; TEMP 98.4
--- NOTE | 2021-07-19 12:22 | NUR ---
Pt much more awake now. He is back in bed and eating his lunch. Pt not having any new complaints of pain. Pt denies any needs, call light within reach
[2021-07-19 13:12] VITALS: BP 89/42; PULSE 81; TEMP 98.4
[2021-07-19] MEDS ORDERED: VITAMINC1000TA PO (13:19)
--- NOTE | 2021-07-19 13:30 | NUR ---
PT in recently to work with pt. Pt went to stand and got really dizzy. Pt was hypotensive. He stated this happened last time he went septic. Chiquis HUITRON notified
[2021-07-19 15:35] VITALS: BP 115/64; PULSE 89; TEMP 98.6
--- NOTE | 2021-07-19 18:29 | NUR ---
Pt has done okay throughout the afternoon. Did not get up again, very weak. Pt states he is not very active at home. States that less than 10% of his day is active. Dressing to his right heel with mepilex. Stated that have been going to wound care for over a year dealing with it. Area on 2nd toe on right foot is ulcer, wrapped with telfa and gauze. Placed heels in heel protectors while in bed.
--- NOTE | 2021-07-19 20:10 | NUR ---
PT IN BED. REPEAT POTASSIUM 3.2, WILL GET 60MEQ OF POTASSIUM FOR REPLACEMENT. FIRST DOSE OF EFFERVESCENT GIVEN. SPOUSE AT BEDSIDE. PT IS ALERT, ORIENTED X3. HAS SUPRAPUBIC CATHETER, CARES GIVEN. DRAINING YELLOW URINE. HAS INT TO RT HAND AND IVF TO LEFT WRIST. HAS BILATERAL HEEL BOOTS ON, MEPILEX INTACT TO RT HEEL. REPORTS RT LOWER BACK PAIN, REFUSES TYLENOL.
[2021-07-19 20:43] VITALS: BP 146/74; PULSE 94; TEMP 98.3
--- NOTE | 2021-07-19 21:45 | NUR ---
PT TAKES HS MEDS INCLUDING SECOND DOSE OF POTASSIUM EFFERVESCENT. HAS HOME CPAP AT BEDSIDE.
[2021-07-20] VITALS: BP 144/64; BP 144/84; PULSE 88; TEMP 99.1
--- NOTE | 2021-07-20 | NUR ---
PT SWEATY, NEW TELE PADS ON, THEN REPLACED BY NEW BOX. SHOWS SR. LAST DOSE OF POTASSIUM GIVEN. OFFERED TO TURN PT, REFUSES.
[2021-07-20 03:36] VITALS: BP 149/81; BP 149/891; PULSE 78; TEMP 98.1
[2021-07-20 05:59] LABS: BASO % 0.4 % (0.0-2.0); EOS # 0.2 K/mm3 (0.0-0.7); EOS % 2.1 % (0.0-4.0); GRAN # 8.2 K/mm3 (1.4-6.5); GRAN % 72.9 % (42.2-75.2); HEMOGLOBIN 11.4 g/dl (13.5-18.0); LYMPH # 1.5 K/mm3 (1.2-3.4); LYMPH % 13.3 % (20.0-51.0); MEAN CELL VOLUME 91 fl (80.0-100.0); MEAN CORPUSCULAR HEMOGLOBIN 30 pg (27-31); MEAN CORPUSCULAR HGB CONC 33 g/dl (33.0-37.0); MEAN PLATELET VOLUME 10.9 fl (7.4-10.4); MONO # 1.2 K/mm3 (0.1-0.6); MONO % 10.5 % (1.7-9.3); PLATELET COUNT 142 K/mm3 (130-400); RED BLOOD COUNT 3.87 M/mm3 (4.20-5.60); REDCELL DISTRIBUTION WIDTH-CV 13.4 % (11.5-14.5)
[2021-07-20 06:00] LABS: HEMATOCRIT 35.1 % (42.0-52.0)
--- NOTE | 2021-07-20 06:00 | NUR ---
PT AWAKE, TAKES AM MED WITHOUT PROBLEM. IS ALERT AND ORIENTED X4. GOOD URINE OUTPUT, IVF CONTINUE.
[2021-07-20 06:14] LABS: ALBUMIN 2.5 gm/dL (3.4-4.8); BILIRUBIN,TOTAL 0.4 mg/dL (0.2-1.2); CALCIUM 7.6 mg/dL (8.4-10.2); CREATININE, serum 1.26 mg/dL (0.72-1.25); POTASSIUM 3.5 mmol/L (3.5-4.5); TOTAL PROTEIN 5.6 gm/dL (6.2-8.1)
[2021-07-20 08:00] VITALS: BP 152/78; PULSE 88; TEMP 97.8
--- NOTE | 2021-07-20 09:15 | NUR ---
Patient up to chair, Cnas assisted patient to the bathroom, they also assisted with pericares, ramos cares, & hygiene. Patient was very dyspnic with exertion. Patient did not feel this was new, it is chronic. Patient reports chronic leg pain, did not want any medications this am. K+ protocol per orders. He did well with breakfast. Will monitor.
--- NOTE | 2021-07-20 09:19 | NUR ---
Follow-up visit; Patient thanked Dry House Tender for stopping and offering God's blessings.
--- NOTE | 2021-07-20 10:37 | NUR ---
PT is now recommending post-acute rehab and to consider [facility]. Alisa, [facility] Director, was consulted and is reviewing the patient's information and if they would have a bed available. YIMI contacted the patient's , Kendra, to update on PT's recommendation now and [facility]. Kendra is in agreement to rehab. YIMI informed Kendra of the other facilities for a second preference. Kendra chose [facility]. YIMI contacted and faxed a referral to Mitchell at [facility]. Awaiting screens. *Discharge plan: post-acute rehab*
[2021-07-20 11:52] VITALS: BP 160/78; PULSE 91; TEMP 98.4
--- NOTE | 2021-07-20 11:56 | NUR ---
Patient sitting up in chair, he is on his phone. denies needs at this time.
--- NOTE | 2021-07-20 12:23 | NUR ---
Patient speaking with Margarita in [facility]
--- NOTE | 2021-07-20 13:02 | NUR ---
Mitchell, at [facility], reports that they are good to accept the patient as long as he participates with therapy and has stable labs. Alisa, [facility] Director, reports that they are able to accept the patient today. YIMI updated the patient's , Kendra. Kendra is in agreement to the patient going to [facility] today. The patient is to discharge today, 07/20, to [facility]. No additional needs at this time.
[2021-07-20] MEDS ORDERED: OMNICEF 300MG300 MG PO (13:06)
--- NOTE | 2021-07-20 14:10 | NUR ---
Patient accepted to [facility]. Alicia assisted to move patient over to room 334. Iv DC tele off. Will admitt patient to [facility]
== END 2021-07-20 14:13 | DRG 854 ==
LOC: COL.ER 11:28 → SURG 15:00
PROVIDERS: Emergency Medicine; Physician Assistant; Urology
PROC: 0T778DZ Dilation of Left Ureter with Intraluminal Device, Via Natural or Artificial Opening Endoscopic (ICD-10-PCS; principal; 2021-07-18 15:00)
PROC: BT1F1ZZ Fluoroscopy of Left Kidney, Ureter and Bladder using Low Osmolar Contrast (ICD-10-PCS; 2021-07-18 15:00)
PROC: 0T7D8ZZ Dilation of Urethra, Via Natural or Artificial Opening Endoscopic (ICD-10-PCS; 2021-07-18 15:00)
DX: A41.9 Sepsis, unspecified organism (principal); N17.9 Acute kidney failure, unspecified; N13.6 Pyonephrosis; E87.2 Acidosis; N35.919 Unspecified urethral stricture, male, unspecified site; J44.9 Chronic obstructive pulmonary disease, unspecified; M19.90 Unspecified osteoarthritis, unspecified site; I10 Essential (primary) hypertension; K21.9 Gastro-esophageal reflux disease without esophagitis; E78.00 Pure hypercholesterolemia, unspecified; E87.6 Hypokalemia; F32.A Depression, unspecified; Z79.82 Long term (current) use of aspirin; Z85.828 Personal history of other malignant neoplasm of skin
CPT/HCPCS: 99223-AI; 99232-AI; 99239; C1769; C2617; J0690; J0696; J1644; J2270; J2405; J2543; J2704; J2765; J3010; J3370; J7030; J7040; J7120; Q9967

== ENCOUNTER 2021-07-20 14:13 | Inpatient (IN) | payer MEDICARE, OTHER ==
[~2021-07-20] VITALS: Ht 180.3 cm; Wt 115.3 kg
[~2021-07-20 14:13] MED LIST changes: +VITAMINC1000TA PO
[2021-07-20 17:14] VITALS: BP 168/80; PULSE 86; TEMP 98.2
--- NOTE | 2021-07-20 18:11 | NUR ---
Patient admitted to room 334 from 347. Patient sitting up eating dinner. Tylenol for pain per request. chronic leg/back pain. He worked with therapy this afternoon. spoke to Essence marcial about hositalist consult. Will report off to nightnurse
--- NOTE | 2021-07-21 00:33 | NUR ---
Received report from day shift. Patient here for debility diagnosis. Patient reports pain / requesting tylenol. Patient states they have had loose stools and requests anti-diarhheal. Hospitalist notified. Assessment performed. PM meds administered. Patient resting in bed with call light near.
[2021-07-21 06:02] VITALS: BP 164/83; PULSE 86; TEMP 97.4
--- NOTE | 2021-07-21 07:45 | NUR ---
Patient woke up in anticipation of therapy. Rasin brand cereal provided, due to kitchen technical difficulties. Am medication given. Patient denies the need for tyelnol. Will monitor.
--- NOTE | 2021-07-21 11:20 | NUR ---
rounded. Cozaar for elevated pressures given. Probioitc per orders. Tyelnol for chronic leg and back pain. He has one more round of therapy, but does reports being tired. Did not want lunch. Will monitor.
--- NOTE | 2021-07-21 12:54 | NUR ---
stopped by but nothing needed at this time.
--- NOTE | 2021-07-21 16:20 | NUR ---
community mental health social worker met with patient to complete intake. Patients Kendra [phone] present at bedside. Patient was previously independent before admission to hospital. He utilizes a cane (primary), a walker and a wheelchair to assist with ambulation. Patient has no home oxygen needs but does utilize a CPAP at night. PCP is Dr. Alvarado and he utilizes [facility] for medications. Patient does not have a DP- established and is not interested in creating one. He and Kendra have two children: Federica and Irma.
--- NOTE | 2021-07-21 17:48 | NUR ---
Patient eating dinner. Significant other at bedside. Tyelnol for pain. He has watched Tv this afternoon with minimal needs. Ramon alcantara.
[2021-07-21 17:50] VITALS: BP 150/68; PULSE 86; TEMP 97.9
--- NOTE | 2021-07-21 20:09 | NUR ---
RECEIVED CHANGE OF SHIFT REPORT FROM DAY SHIFT RN. PATIENT RESTING IN BED DURING REPORT, EXIT ALARM ON, CALL LIGHT WITHIN REACH. DENIES ANY NEEDS AT THIS TIME.
[2021-07-22 05:40] VITALS: BP 150/74; PULSE 78; TEMP 98.1
--- NOTE | 2021-07-22 07:14 | NUR ---
Change of shift report given to day shift RNMayra.
[2021-07-22 17:01] VITALS: BP 159/79; PULSE 98; TEMP 97.9
--- NOTE | 2021-07-23 01:55 | NUR ---
PATIENT ALERT AND ORIENTED. C/O MILD PAIN TO EPIGASTRIC AREA, PRN TYLENOL GIVEN PER REQUEST ALONG WITH HS MEDS. CATHETER CARE TO SUPRAPUBIC CATHETER DONE. DYER TO DD WITH CLEAR YELLOW URINE DRAINING. CURRENTLY IN BED, RR EVEN AND UNLABORED. CALL LIGHT IN REACH.
[2021-07-23 05:22] VITALS: BP 162/84; PULSE 78; TEMP 97.8
[2021-07-23 07:03] LABS: HEMOGLOBIN 12.1 g/dl (13.5-18.0); MEAN CELL VOLUME 90 fl (80.0-100.0); MEAN CORPUSCULAR HEMOGLOBIN 29 pg (27-31); MEAN CORPUSCULAR HGB CONC 33 g/dl (33.0-37.0); MEAN PLATELET VOLUME 10.2 fl (7.4-10.4); PLATELET COUNT 274 K/mm3 (130-400); RED BLOOD COUNT 4.12 M/mm3 (4.20-5.60); REDCELL DISTRIBUTION WIDTH-CV 13.2 % (11.5-14.5)
[2021-07-23 07:06] LABS: HEMATOCRIT 36.9 % (42.0-52.0)
[2021-07-23 07:32] LABS: CALCIUM 8.3 mg/dL (8.4-10.2); CREATININE, serum 0.98 mg/dL (0.72-1.25); MAGNESIUM 1.7 mg/dL (1.6-2.6); POTASSIUM 3.3 mmol/L (3.5-4.5)
--- NOTE | 2021-07-23 08:00 | NUR ---
PATIENT IS A&O. VSS, AM MEDS GIVEN. BREAKFAST TRAY AT BEDSIDE. HEAD TO TOE ASSESSMENT COMPLETE, SEE SHIFT ASSESSMENT. SUPER PUBIC DYER TO DD. 2 MAX ASSIST. PT/OT/ST CONSULTED. NO OTHER NEEDS AT THIS TIME. CALL LIGHT IN REACH.
[2021-07-23 08:13] LABS: EOSINOPHIL 12 % (0-4); LYMPHOCYTE 19 % (20.0-51.0); NEUTROPHILS 62 % (42.0-75.2); PLATELET ESTIMATE NORMAL (NORMAL)
--- NOTE | 2021-07-23 13:44 | NUR ---
YIMI touched base with patient this morning. Patient had just returned from OT. Patient has no complaints at this time. Educated him on my role and wrote my phone number on the white board.
--- NOTE | 2021-07-23 14:00 | NUR ---
PATIENT WORKING WITH THERAPY AND OUT OF SHOWER. CHANGED RLE HEEL DRESSING AND COVERED WITH ACEWRAP.
[2021-07-23 17:05] VITALS: BP 157/69; PULSE 85; TEMP 97.8
--- NOTE | 2021-07-23 22:17 | NUR ---
Received report from day shift. Patient alert and oriented x4. VSS. Patient here for debility r/t obstructed kidney stone/sepsis. Patient denies pain. Assessment performed. PM Meds adminsitered. Right ankle wound assessed and re-wrapped. Patient in bed with call light near.
[2021-07-24 06:03] VITALS: BP 143/64; PULSE 83; TEMP 98.4
--- NOTE | 2021-07-24 14:16 | NUR ---
Admission QIM scores were reviewed by the team. Code of 3 chosen for toilet hygiene was determined by team discussion to be the most usual performance for this patient during the assessment period. Code of 3 chosen for toileting transfers was determined by team discussion to be the most usual performance for this patient during the assessment period. Code of 88 chosen for rolling left to right was determined by team discussion to be the most usual performance before interventions for this patient during the assessment period. Code of 2 chosen for sit to lying was determined by team discussion to be the most usual performance before interventions for this patient during the assessment period. Code of 2 chosen for lying to sitting on side of bed was determined by team discussion to be the most usual performance for this patient during the assessment period. Code of 88 for sit to stand was determined by team discussion to be the most usual performance for this patient during the assessment period. Code of 88 for chair/bed to chair transfers was determined by team discussion to be the most usual performance for this patient during the assessment period.--Alisa Banuelos,
[2021-07-24 18:00] VITALS: BP 134/67; PULSE 89; TEMP 98.2
--- NOTE | 2021-07-25 04:44 | NUR ---
Report received from SAMMY Barrientos. Pt resting quietly in bed, spouse at the bedside. Pt had an uneventful evening, had minimal complaints of pain. Medication admin completed without difficulty. Gilman is draining adequately. Pts boots are placed on both feet for the evening. No other complaints at this time, call light within reach.
[2021-07-25 05:26] VITALS: BP 141/73; PULSE 81; TEMP 97.9
--- NOTE | 2021-07-25 08:15 | NUR ---
PT UP TO BATHROOM WITH THERAPY AND THEN BACK TO BED. PT USED WALKER AND HAD STEADY GAIT. SUPRAPUBIC CATH IS DRAINING YELLOW URINE. PT HAS NO COMPLAINTS OR NEEDS AT THIS TIME. "IM JUST GOING TO WORK WITH THERAPY NOW." THERAPY AT BEDSIDE TO WORK WITH PT.
--- NOTE | 2021-07-25 10:15 | NUR ---
Follow-up; Patient appeared ok, struggling a bit with something on his tray. He thanked Chart Clerk for looking in on him and keeping him in her prayers.
--- NOTE | 2021-07-25 14:58 | NUR ---
merchandise worker provided patient todays team conference notes. Notes reviewed and questions answered. Patient verbalized no concerns with discharge plan on Friday. Discussed the recommendation of going home with home health. Patient provided the [facility].gov list of HH agencies. Patient states he had [facility] in the past and does not want them again. Patient would like to review the list overnight. Informed him i would touch base with him tomorrow.
--- NOTE | 2021-07-25 15:03 | NUR ---
PT STATES THAT HE NEEDED HIS FOOT REWRAPPED. DRESSING WAS IN PLACE AND DID NOT NEED CHANGED. PLACED A HEEL MEPILEX PAD ON AND THEN WRAPPED WITH AN MOSES WRAP.
[2021-07-25 16:54] VITALS: BP 136/63; PULSE 88; TEMP 98.3
--- NOTE | 2021-07-25 19:23 | NUR ---
PT LAYING SUPINE IN BED WITH AT BEDSIDE. PT STATES HE IS DONE WITH DINNER. TRAY WAS REMOVED. DYER EMPTIED. DRAINING AT BED SIDE YELLOW URINE. PT STATES NO NEEDS OR COMPLAINTS. CALL LIGHT IS WITHIN [facility].
--- NOTE | 2021-07-25 19:50 | NUR ---
PM ASSESSMENT COMPLETE. PT SITTING UP IN BED, IN ROOM. NOTED LABORIOUS BREATHING, HOWEVER PT STATES THAT IS HIS BASELINE FROM COPD, DENIES FEELING SOA. CPAP MACHINE AT BEDSIDE, PT STATES WEARS AT NIGHT FOR SLEEP. REQUESTS TYLENOL FOR GENERALIZED PAIN, WILL ADMINISTER. ELICIA AND MOSES WRAP TO RIGHT HEEL, REPORTS PRESSURE ULCER THAT HAS BEEN THERE SINCE MAY OF 2020. NO QUESTIONS OR CONCERNS, WILL CONTINUE TO MONITOR.
[2021-07-26 05:24] VITALS: BP 134/64; PULSE 84; TEMP 98.8
--- NOTE | 2021-07-26 06:54 | NUR ---
shift report received from SAMMY Grossman
--- NOTE | 2021-07-26 07:30 | NUR ---
sitting up in bed having breakfast, full assessment completed, see interventions for further info, denies needs at this time
--- NOTE | 2021-07-26 08:15 | NUR ---
ambulating in bacon with physical therapy
--- NOTE | 2021-07-26 10:39 | NUR ---
speech therapy in working with patient
--- NOTE | 2021-07-26 11:35 | NUR ---
dressing to right foot redressed, and new stat lock to suprpubic catheter,
--- NOTE | 2021-07-26 12:21 | NUR ---
derrick worker well service followed up with patient about which home health agency he would like to be established with. Patient chose [facility]. Informed the patient that i will send off the clinical referral today. Patient scheduled to discharge tomorrow. Presented patient with the [facility].IM form. Education provided and the patient verbalized his agreement with the discharge plan. Signed original placed in the patients chart and copy provided back to the patient.
--- NOTE | 2021-07-26 13:09 | NUR ---
ambulating in bacon with physical therapy
--- NOTE | 2021-07-26 16:09 | NUR ---
resting in bed, denies needs
--- NOTE | 2021-07-26 16:45 | NUR ---
resting in bed visiting with his
[2021-07-26 17:55] VITALS: BP 171/67; PULSE 92; TEMP 97.9
--- NOTE | 2021-07-26 20:00 | NUR ---
PT VISITING WITH . REMINDED OF VISITING HOURS. PT UPSET. [facility] FOLDER INFO DOES NOT REFLECT VISITING HOURS IN IT. PT WANTS TO TALK TO DATABASE PROGRAMMER. HS HERE. PT CAN STAY TILL 2130 PER HS. GETTING CPAP READY FOR PT. CALL LIGHT IN REACH. PT MOD I IN ROOM.
--- NOTE | 2021-07-27 05:51 | NUR ---
PT HAS SLEPT WELL THROUGH THE NIGHT WITH CPAP.
[2021-07-27 05:52] VITALS: BP 142/60; PULSE 87; TEMP 98.2
[2021-07-27 07:22] LABS: CALCIUM 8.4 mg/dL (8.4-10.2); CREATININE, serum 0.97 mg/dL (0.72-1.25); POTASSIUM 4.3 mmol/L (3.5-4.5)
--- NOTE | 2021-07-27 08:01 | NUR ---
Shift report recieved from overnight cashier RN. Pt. awake, resting in supine position in bed with HOB up approx 30 degrees. He denies pain or discomfort and is looking to forward to discharging home today. He denies further needs at this time. Call light is within his reach
[2021-07-27] MEDS ORDERED: COZAAR 25MG25 MG/TAB PO (10:02)
--- NOTE | 2021-07-27 11:50 | NUR ---
Pt. Health Summary, Home Medications, and Discharge Summary reveiwed with pt. and his . Discussed new home medications and follow up appointments. Personal belongings were gathered by the spouse. Pt. escorted via wheelchair and seatbelted for ride home. They had no further questions
--- NOTE | 2021-07-27 12:39 | NUR ---
Patients clinical updates and discharge orders faxed to Veronica at [facility]. Contact made with the patients Radha to notify her that [facility] will call and schedule a time to start services. Radha states that she will not be able to get their phone call " if it's not programed into my phone". Phone number to [facility] provided to Radha and encouraged her to reach out to them if she doesn't get the call.
== END 2021-07-27 11:30 | disposition home health service (06) | DRG 947 ==
PROVIDERS: Physician Assistant; ADMIT Physical Medicine & Rehabilitation Sports Medicine
DX: R53.81 Other malaise (principal); A41.9 Sepsis, unspecified organism; N13.6 Pyonephrosis; G37.3 Acute transverse myelitis in demyelinating disease of central nervous system; J44.9 Chronic obstructive pulmonary disease, unspecified; E78.00 Pure hypercholesterolemia, unspecified; I10 Essential (primary) hypertension; N31.9 Neuromuscular dysfunction of bladder, unspecified; K21.9 Gastro-esophageal reflux disease without esophagitis; E66.9 Obesity, unspecified; R40.0 Somnolence; F32.A Depression, unspecified; E87.6 Hypokalemia; G62.9 Polyneuropathy, unspecified; R15.9 Full incontinence of feces; Z96.0 Presence of urogenital implants; Z87.01 Personal history of pneumonia (recurrent); Z68.34 Body mass index [BMI] 34.0-34.9, adult; Z79.2 Long term (current) use of antibiotics; Z79.82 Long term (current) use of aspirin; Z79.899 Other long term (current) drug therapy
CPT/HCPCS: 99222; 99231-AI; 99232-AI; J1644

== ENCOUNTER 2021-08-24 11:06 | Day surgery (SDC) | payer MEDICARE, OTHER ==
[~2021-08-24] VITALS: Ht 180.3 cm; Wt 113.0 kg
[~2021-08-24 11:06] MED LIST changes: +COZAAR 25MG25 MG/TAB PO
[2021-08-24] MEDS ORDERED: KLONOPIN WAFERS1 MG PO (11:45)
[2021-08-24] MEDS ORDERED: OMNICEF 300MG300 MG PO (11:49)
[2021-08-24] MEDS ORDERED: VOLTAREN 75 DR75 MG PO (12:00)
[2021-08-24] MEDS ORDERED: LASIX 40MG TABL40 MG PO (12:00)
[2021-08-24 12:08] VITALS: BP 127/72; PULSE 96; TEMP 98.6
[2021-08-24 13:35] VITALS: BP 134/68; PULSE 88; TEMP 97.5
[2021-08-24 13:50] VITALS: BP 127/62; PULSE 85
[2021-08-24 14:35] VITALS: BP 134/68; PULSE 88; TEMP 97.5
--- NOTE | 2021-08-24 14:35 | NUR ---
PT arrived from procedure drowsy but oriented. Monitors applied and VSS. PT provided a warm muffin and ice water per request. PT denies nausea. NO vomiting. remains present. PT oriented to room and call barrera, within reach. Will montior per intervals. Bandage on backside is clean, dry and intact. PT is conversing with staff.
[2021-08-24 14:50] VITALS: BP 127/62; PULSE 85
--- NOTE | 2021-08-24 14:50 | NUR ---
PT has finished his muffin. Denies nausea. NO vomiting. Expressed desire to be discharged. VSS. Call barrera remains within reach.
[2021-08-24 15:05] VITALS: BP 136/66; PULSE 87
--- NOTE | 2021-08-24 15:05 | NUR ---
1505 - vss. PT minimally assisted to bedside and was able to void using suprapublic catheter; light yellow urine 400ml to urinal. IV then discontinued. Catheter tip intact and pressure bandage applied. NO redness or swelling noted. PT denied needing assistance changing into personal clothes, and states "my will help". Call barrera is within reach if needed. Side rails x1.
--- NOTE | 2021-08-24 15:20 | NUR ---
DC instructions and edcuational material reviewed with the PT and his , both verbalized understanding and the PT signed the related paperwork. Questions answered to PT satisfaction. PT was then dismissed from [facility] via wheelchair to the PT entrence. PT transferred into the care of his , who is driving private car.
== END 2021-08-24 15:50 | disposition home or self-care (01) ==
LOC: SDCO 11:06
DX: N20.0 Calculus of kidney (principal); Z96.0 Presence of urogenital implants; Z87.891 Personal history of nicotine dependence
CPT/HCPCS: C1769; J0690; J1100; J2370; J2405; J2704; J3010; J7120

== ENCOUNTER 2022-01-02 16:23 | Inpatient (IN) | payer MEDICARE, OTHER ==
[~2022-01-02] VITALS: Ht 180.3 cm; Wt 123.6 kg
[~2022-01-02 16:23] MED LIST changes: +KLONOPIN WAFERS1 MG PO
[2022-01-02 17:02] LABS: HEMATOCRIT 40.7 % (42.0-52.0); HEMOGLOBIN 13.6 g/dl (13.5-18.0); MEAN CELL VOLUME 89 fl (80.0-100.0); MEAN CORPUSCULAR HEMOGLOBIN 30 pg (27-31); MEAN CORPUSCULAR HGB CONC 33 g/dl (33.0-37.0); MEAN PLATELET VOLUME 9.5 fl (7.4-10.4); PLATELET COUNT 172 K/mm3 (130-400); RED BLOOD COUNT 4.57 M/mm3 (4.20-5.60); REDCELL DISTRIBUTION WIDTH-CV 13.5 % (11.5-14.5)
[2022-01-02 17:11] LABS: COLLECTION METHOD IN
[2022-01-02 17:23] LABS: ALBUMIN 3.4 gm/dL (3.4-4.8); C-REACTIVE PROTEIN 37.08 mg/dL (0.00-0.50); CALCIUM 8.9 mg/dL (8.4-10.2); CREATININE, serum 2.44 mg/dL (0.72-1.25); POTASSIUM 3.5 mmol/L (3.5-4.5); TOTAL PROTEIN 7.2 gm/dL (6.2-8.1)
[2022-01-02 17:35] LABS: TROPONIN-I 0.05 ng/mL (0.00-0.033)
[2022-01-02 17:40] LABS: URINE COLOR Yellow (YELLOW)
[2022-01-02 17:41] LABS: URINE BLOOD 2+ (NEGATIVE); URINE GLUCOSE Negative (NEGATIVE); URINE KETONE Negative (NEGATIVE); URINE NITRATE Negative (NEGATIVE); URINE PROTEIN(semi-quant) 1+ (NEGATIVE); URINE UROBILINOGEN 0.2 E.U/dL (0.2-1.0)
[2022-01-02 17:42] LABS: URINE APPEARANCE Cloudy (CLEAR/HAZY)
[2022-01-02 17:47] LABS: MUCOUS Present (NOT PRESENT); SQUAMOUS EPITHELIAL None Seen /hpf (0-10); URINE BACTERIA None Seen /hpf (NONE SEEN)
[2022-01-02 18:20] LABS: BAND 27 % (0-10); LYMPHOCYTE 7 % (20.0-51.0); NEUTROPHILS 62 % (42.0-75.2)
[2022-01-02 18:22] LABS: PLATELET ESTIMATE NORMAL (NORMAL)
[2022-01-02] MEDS ORDERED: KLONOPIN 1MG1 MG PO (19:25)
[2022-01-02] MEDS ORDERED: STIOLTO RESPIMAT4 GM IH (19:25)
[2022-01-02] MEDS ORDERED: TOPAMAX50 MG PO (19:25)
[2022-01-02] MEDS ORDERED: COZAAR100 MG PO (19:26)
[2022-01-02] MEDS ORDERED: ZANAFLEX CAPSULE4 MG PO (19:27)
[2022-01-02] MEDS ORDERED: LASIX 40MG TABL40 MG PO (19:27)
[2022-01-02] MEDS ORDERED: LAMICTAL 100MG100 MG PO (19:27)
[2022-01-02] MEDS ORDERED: LIPITOR 10MG10 MG PO (19:27)
[2022-01-02] MEDS ORDERED: AMITRIPTYLINE H50 M1 PO (19:28)
[2022-01-02] MEDS ORDERED: WELLBUTRIN XL300 M1 PO (19:28)
[2022-01-02] MEDS ORDERED: PRIL40 PO (19:28)
[2022-01-02] MEDS ORDERED: VOLTAREN 75 DR75 MG PO (19:28)
[2022-01-02] MEDS ORDERED: ASPIRIN 81M81 MG/TA2 PO (19:29)
[2022-01-02] MEDS ORDERED: ZOLOFT 100MG100 MG PO (19:29)
[2022-01-02] MEDS ORDERED: UREX1 GM PO (19:29)
[2022-01-02] MEDS ORDERED: VITAMINC1000TA PO (19:30)
[2022-01-02] MEDS ORDERED: ZYRTEC 10MG10 MG PO (19:30)
[2022-01-02] MEDS ORDERED: VITAMIN K2100 MCG PO (19:31)
[2022-01-02] MEDS ORDERED: THE MEDICINE S200 M2 PO (19:31)
[2022-01-02] MEDS ORDERED: MASON NATURAL2000 IU PO (19:31)
[2022-01-02] MEDS ORDERED: ASHWAGANDHA500 MG PO (19:32)
[2022-01-02] MEDS ORDERED: TURMERIC500 MG PO (19:32)
[2022-01-02] MEDS ORDERED: CVS SPECTRAVIT1 EA15 PO (19:32)
[2022-01-02] MEDS ORDERED: TUMS ULTRA ST1000 MG PO (19:32)
[2022-01-02] MEDS ORDERED: CRANBERRY500 M3 PO (19:32)
[2022-01-02 20:59] LABS: INR 1.4 (0.8-3.0); PROTHROMBIN TIME 16.2 SECONDS (9.7-12.8)
[2022-01-03] VITALS (7 sets, daily range): BP systolic 87–157; BP diastolic 47–70; PULSE 70–90; TEMP 97.7–98.5
[2022-01-03 07:21] LABS: HEMATOCRIT 39.1 % (42.0-52.0); MEAN CORPUSCULAR HEMOGLOBIN 30 pg (27-31); MEAN CORPUSCULAR HGB CONC 31 g/dl (33.0-37.0); MEAN PLATELET VOLUME 10.2 fl (7.4-10.4); PLATELET COUNT 142 K/mm3 (130-400); RED BLOOD COUNT 4.07 M/mm3 (4.20-5.60); REDCELL DISTRIBUTION WIDTH-CV 13.7 % (11.5-14.5)
[2022-01-03 07:23] LABS: MEAN CELL VOLUME 96 fl (80.0-100.0)
[2022-01-03 07:28] LABS: ALBUMIN 2.8 gm/dL (3.4-4.8); BILIRUBIN,TOTAL 0.6 mg/dL (0.2-1.2); CALCIUM 8.2 mg/dL (8.4-10.2); CREATININE, serum 1.88 mg/dL (0.72-1.25); POTASSIUM 3.7 mmol/L (3.5-4.5)
--- NOTE | 2022-01-03 07:35 | NUR ---
Patient arrived to the floor at 0555 per stretcher from the ER, with IV infusing well, alert and oriented but drowsy, with suprapubic catheter draining clear yellow urine, took vitals, called Dr. Vizcarra for neuro consult and Dr. Webster for cardio consult, seizure pad applied, gave report to dayshift nurse.
--- NOTE | 2022-01-03 08:00 | NUR ---
PATIENT IS ORIENTED BUT DROWSY THIS AM. PATIENT REPORTS HE DIDN'T GET MUCH SLEEP LAST NIGHT. ADMITED FROM ER WITH SEPSIS SECONDARY TO LEFT KIDNEY STONE. PATIENT HAS EXTENSIVE HX INCLUDING KIDNEY STONES WITH STENTS AND SEPSIS. NOTED SOFT B/P OF 109/60 WHICH IS IMPROVED FROM ADMISSION IN THE UPPER 80'S SYSTOLIC. AFEBRILE. 02 @ 2L PER NC WITH SATS IN MID 90'S. PATIENT WEARS C-PAP AT NOC. NO C/O N/V. IV FLUIDS INFUSING VIA PUMP INTO RIGHT HAND IV. NEUROLOGY & CARDIOLOGY CONSULTED THIS AM, NOTIFIED BY NIGHT NURSE. CHRONIC SUPER PUBIC DYER TO DD. PATIENT ADMITTED WITH SKIN INTEG. ISSUES, SEE SHIFT ASSESSMENT. HEAD TO TOE ASSESSMENT COMPLETE. DNR STATUS. LAB CALLED WITH POSITIVE BLOOD CULTURES, HOSPITALIST TEAM NOTIFIED. AM MEDS GIVEN. NO OTHER NEEDS AT THIS TIME. CALL LIGHT IN REACH.
[2022-01-03 08:59] LABS: BAND 15 % (0-10); LYMPHOCYTE 6 % (20.0-51.0); NEUTROPHILS 77 % (42.0-75.2)
[2022-01-03 09:00] LABS: HYPOCHROMIA 1+; PLATELET ESTIMATE NORMAL (NORMAL)
--- NOTE | 2022-01-03 09:03 | NUR ---
Initial visit; Patient listened as Coping Machine Assembler mentioned that she could offer prayer or keep him in her prayers or connect him to him home adventism. Patient declined all the above.
--- NOTE | 2022-01-03 13:19 | NUR ---
plant maintenance worker met with patient to discuss discharge planning. Patient states he lives with his spouse and her daughter/granddaughters and plans to return home upon discharge. Patient states he is independent with his activities and has his help with socks and shoe donning. Patient states that his primary care provider is Dr Alvarado and that he has prescription coverage and utilizes [facility] and local pharmacies. Patient states he does not have advance directives. Worker provided patient with written information on advance directives and offered to assist with completion if patient desired.
[2022-01-03] MEDS ORDERED: REQUIP 0.5MG0.5 MG PO (20:24)
[2022-01-03] MEDS ORDERED: STIOLTO RESPIMAT4 GM INH (20:40)
--- NOTE | 2022-01-03 23:22 | NUR ---
Patient's was here this evening at patient's room, mentioned to this nurse that patient takes ropinirole and tiotropium spray at bedtime, called Essence regarding this, patient A/O x 4, VSS, uses bipap at HS with 2liters of oxygen, head to toe assessment done, had a large BM, applied a new dressing to his left lower butt cheek area, questions has been addressed, no further needs for this patient at this time, call light and personal items within reach.
[2022-01-04] VITALS (7 sets, daily range): BP systolic 103–159; BP diastolic 49–87; PULSE 72–94; TEMP 97.6–98.9
[2022-01-04 07:04] LABS: ALBUMIN 2.7 gm/dL (3.4-4.8); BILIRUBIN,TOTAL 0.4 mg/dL (0.2-1.2); CALCIUM 7.9 mg/dL (8.4-10.2); CREATININE, serum 1.21 mg/dL (0.72-1.25); POTASSIUM 3.7 mmol/L (3.5-4.5); TOTAL PROTEIN 5.9 gm/dL (6.2-8.1)
[2022-01-04 08:26] LABS: BASO % 0.2 % (0.0-2.0); EOS % 0.2 % (0.0-4.0); GRAN # 10.6 K/mm3 (1.4-6.5); GRAN % 81.3 % (42.2-75.2); HEMOGLOBIN 12.3 g/dl (13.5-18.0); LYMPH # 1.6 K/mm3 (1.2-3.4); LYMPH % 12.4 % (20.0-51.0); MEAN CORPUSCULAR HEMOGLOBIN 29 pg (27-31); MEAN CORPUSCULAR HGB CONC 32 g/dl (33.0-37.0); MEAN PLATELET VOLUME 9.9 fl (7.4-10.4); MONO # 0.7 K/mm3 (0.1-0.6); MONO % 5.4 % (1.7-9.3); PLATELET COUNT 161 K/mm3 (130-400); RED BLOOD COUNT 4.21 M/mm3 (4.20-5.60); REDCELL DISTRIBUTION WIDTH-CV 13.4 % (11.5-14.5)
[2022-01-04 08:28] LABS: MEAN CELL VOLUME 90 fl (80.0-100.0)
--- NOTE | 2022-01-04 09:00 | NUR ---
Pt. sitting up in bed. Pt. is A&OX3, assessment complete. IV to rt. forearm patent, IV fluids infusing per orders. Pt. denies pain or other needs, call light within reach.
--- NOTE | 2022-01-04 20:57 | NUR ---
THIS WIRE SETTER WAS NOTIFIED BY THE LAB THAT THE SECOND BLOOD CULTURE WAS POSITIVE FOR [facility]. THIS RESULT WAS RECEIVED AT 20:45 AND CALLED TO FREDRICK HUITRON AT 20:55. NO NEW ORDERS RECEIVED AT THIS TIME. WILL MONITOR.
--- NOTE | 2022-01-05 01:14 | NUR ---
NURSING SHIFT ASSESSMENT COMPLETED. THE PATIENT WAS ALERT AND ORIENTED UPON ASSESSMENT. THE PATIENTS SPOUSE AT BEDSIDE. THE PATIENT DENIED PAIN OR DISCOMFORT. THE PATIENT DENIED NEEDS AT THIS TIME. SEE NURSING ASSESSMENT FOR COMPLETE DETAILS. CALL LIGHT, PERSONAL BELONGINGS WITHIN REACH. THE BED IS IN THE LOWEST POSITION. BED ALARM ON. WILL MONITOR.
[2022-01-05 05:04] VITALS: BP 157/71; PULSE 80; TEMP 97.9
[2022-01-05 07:16] VITALS: BP 150/69; PULSE 84; TEMP 98.2
[2022-01-05 07:23] LABS: BASO % 0.2 % (0.0-2.0); EOS # 0.2 K/mm3 (0.0-0.7); EOS % 2.1 % (0.0-4.0); GRAN # 6.8 K/mm3 (1.4-6.5); GRAN % 68.3 % (42.2-75.2); HEMOGLOBIN 11.8 g/dl (13.5-18.0); LYMPH # 1.9 K/mm3 (1.2-3.4); LYMPH % 19.2 % (20.0-51.0); MEAN CELL VOLUME 90 fl (80.0-100.0); MEAN CORPUSCULAR HEMOGLOBIN 29 pg (27-31); MEAN CORPUSCULAR HGB CONC 32 g/dl (33.0-37.0); MEAN PLATELET VOLUME 10.3 fl (7.4-10.4); MONO # 0.9 K/mm3 (0.1-0.6); MONO % 9.3 % (1.7-9.3); PLATELET COUNT 182 K/mm3 (130-400); RED BLOOD COUNT 4.06 M/mm3 (4.20-5.60); REDCELL DISTRIBUTION WIDTH-CV 13.5 % (11.5-14.5)
[2022-01-05 07:30] LABS: HEMATOCRIT 36.5 % (42.0-52.0)
[2022-01-05 07:49] LABS: ALBUMIN 2.7 gm/dL (3.4-4.8); BILIRUBIN,TOTAL 0.4 mg/dL (0.2-1.2); CALCIUM 8.1 mg/dL (8.4-10.2); CREATININE, serum 0.94 mg/dL (0.72-1.25); POTASSIUM 3.3 mmol/L (3.5-4.5); TOTAL PROTEIN 5.7 gm/dL (6.2-8.1)
--- NOTE | 2022-01-05 09:00 | NUR ---
Pt. sitting up in bed. Pt. is A&OX3, assessment complete. INT to rt. forearm patent. Pt. denies pain or other needs, call light within reach.
[2022-01-05 12:37] VITALS: BP 157/74; PULSE 80; TEMP 97.8
--- NOTE | 2022-01-05 12:41 | NUR ---
Respiratory Medicine Physician rounds: Respiratory Medicine Physician visit attempted. Patient was watching TV and declined Respiratory Medicine Physician visit.
[2022-01-05 16:06] VITALS: BP 146/71; PULSE 83; TEMP 97.4
[2022-01-05 21:11] VITALS: BP 162/74; PULSE 92; TEMP 98.3
[2022-01-06 00:11] VITALS: BP 158/81; PULSE 87; TEMP 97.4
--- NOTE | 2022-01-06 00:33 | NUR ---
SHIFT NURSING ASSESSMENT COMPLETED. THE PATIENT WAS ALERT AND ORIENTED UPON ASSESSMENT. THE PATIENT WAS WATCHING THE [employer] GAME. THE PATIENT DENIED NEEDS AT THIS TIME. NO S/S OF DISTRESS NOTED. CALL LIGHT AND PERSONAL BELONGINGS WITHIN REACH. BED IN LOWEST POSITION. WILL MONITOR.
[2022-01-06 03:45] VITALS: BP 158/79; PULSE 82; TEMP 97.5
--- NOTE | 2022-01-06 08:00 | NUR ---
Pt. sitting up in bed. Pt. is A&OX3, assessment complete. INT to lt. hand patent. Pt. denies pain or other needs, call light within reach.
[2022-01-06 08:37] VITALS: BP 135/66; PULSE 85; TEMP 97.8
[2022-01-06 08:51] LABS: ALBUMIN 2.8 gm/dL (3.4-4.8); BILIRUBIN,TOTAL 0.4 mg/dL (0.2-1.2); CALCIUM 8.5 mg/dL (8.4-10.2); CREATININE, serum 0.85 mg/dL (0.72-1.25); MAGNESIUM 1.7 mg/dL (1.6-2.6); POTASSIUM 3.4 mmol/L (3.5-4.5)
[2022-01-06 09:27] LABS: HEMATOCRIT 38.2 % (42.0-52.0); HEMOGLOBIN 12.4 g/dl (13.5-18.0); MEAN CELL VOLUME 89 fl (80.0-100.0); MEAN CORPUSCULAR HEMOGLOBIN 29 pg (27-31); MEAN CORPUSCULAR HGB CONC 33 g/dl (33.0-37.0); MEAN PLATELET VOLUME 10.2 fl (7.4-10.4); PLATELET COUNT 214 K/mm3 (130-400); RED BLOOD COUNT 4.28 M/mm3 (4.20-5.60); REDCELL DISTRIBUTION WIDTH-CV 13.3 % (11.5-14.5)
[2022-01-06 11:11] LABS: EOSINOPHIL 3 % (0-4); LYMPHOCYTE 27 % (20.0-51.0); NEUTROPHILS 63 % (42.0-75.2)
[2022-01-06 11:12] LABS: HYPOCHROMIA 1+; PLATELET ESTIMATE NORMAL (NORMAL)
[2022-01-06 12:00] VITALS: BP 149/68; PULSE 95; TEMP 98.9
--- NOTE | 2022-01-06 12:56 | NUR ---
Operations Assistant rounds: Operations Assistant visit attempted. Patient was sleeping.
[2022-01-06 15:38] VITALS: BP 146/75; PULSE 82; TEMP 98.1
[2022-01-06 20:38] VITALS: BP 145/70; PULSE 89; TEMP 98
[2022-01-07] VITALS (8 sets, daily range): BP systolic 123–167; BP diastolic 57–74; PULSE 86–101; TEMP 97.8–99.9
[2022-01-07 07:22] LABS: ALBUMIN 3.1 gm/dL (3.4-4.8); BILIRUBIN,TOTAL 0.4 mg/dL (0.2-1.2); CALCIUM 8.6 mg/dL (8.4-10.2); CREATININE, serum 0.97 mg/dL (0.72-1.25); POTASSIUM 3.9 mmol/L (3.5-4.5); TOTAL PROTEIN 6.4 gm/dL (6.2-8.1)
[2022-01-07 07:27] LABS: HEMATOCRIT 39.6 % (42.0-52.0); HEMOGLOBIN 12.7 g/dl (13.5-18.0); MEAN CELL VOLUME 90 fl (80.0-100.0); MEAN CORPUSCULAR HEMOGLOBIN 29 pg (27-31); MEAN CORPUSCULAR HGB CONC 32 g/dl (33.0-37.0); MEAN PLATELET VOLUME 10.2 fl (7.4-10.4); PLATELET COUNT 254 K/mm3 (130-400); REDCELL DISTRIBUTION WIDTH-CV 13.2 % (11.5-14.5)
[2022-01-07 08:43] LABS: BAND 1 % (0-10); BASOPHIL 1 % (0-2); EOSINOPHIL 4 % (0-4); LYMPHOCYTE 21 % (20.0-51.0); NEUTROPHILS 65 % (42.0-75.2)
[2022-01-07 08:44] LABS: PLATELET ESTIMATE NORMAL (NORMAL)
[2022-01-07 08:45] LABS: HYPOCHROMIA 1+
--- NOTE | 2022-01-07 09:42 | NUR ---
Pt had incontinent stool in bed. Attempted to discuss pt baseline with him as he will be going home today. Asked if he is able to get up at home and get in the restroom. Pt right away became very defensive and instead of answering my questions, he just stammered around his words. After some conversation, he stated that he was told he was a high fall risk and had to stay in bed. I informed him that he needs to use the call light and ask for help to get in to the restroom just like he called to tell me he went to the bathroom. Pt was wanting me to just roll him in bed to clean him up/change the sheets. I stated that I was going to have him get up and sit in the chair. He was not pleased with this. I offered pt to take a shower while he was here so we can wrap his PICC line, he refused to shower. Dressing changed to the stage 2 on his buttocks. Pt also has stage 2 to his left heel. Pt stated to leave it alone and his will change the dressing when she gets here. Pt now in the chair, call light within reach.
--- NOTE | 2022-01-07 10:53 | NUR ---
The PA notified YIMI that the patient is going to need IV antibiotics upon discharge. The hospitalist team is awaiting ID's recommendations for IV antibiotic regimen. YIMI met with the patient to review discharge and to discuss the IV antibiotics and how he could receive them at an outpatient setting or at home. The patient states he would prefer to receive the outpatient IV antibiotics at [facility] and his can transport him. YIMI presented and read the IM form outloud to the patient. The patient verbalized understanding and signed the form. He declined a copy. YIMI attempted to contact the patient's , Kendra, to review the above. YIMI left her a voicemail.
[2022-01-07] MEDS ORDERED: MAXIPIME2 GM IV (13:06)
[2022-01-07] MEDS ORDERED: K-TAB20 PO (13:16)
--- NOTE | 2022-01-07 13:51 | NUR ---
Patients information faxed to [facility] and [facility] for the antibiotics.
--- NOTE | 2022-01-07 16:25 | NUR ---
Informed pt and his that he will be staying and will discharge tomorrow. Awaiting home health to receive antibiotic for home teaching
--- NOTE | 2022-01-07 22:56 | NUR ---
Patient A/Ox4, VSS, NAD, head to toe assesment done, remains on RA, wears cpap at night, denies the needs for pain medicine at this time, still with suprapubic catheter draining clear yellow urine, no further needs or concerns at this time, call light and personal items within reach.
[2022-01-08 04:15] VITALS: BP 118/62; PULSE 88; TEMP 97.6
[2022-01-08 06:26] LABS: HEMATOCRIT 40.9 % (42.0-52.0); HEMOGLOBIN 12.9 g/dl (13.5-18.0); MEAN CELL VOLUME 91 fl (80.0-100.0); MEAN CORPUSCULAR HEMOGLOBIN 29 pg (27-31); MEAN CORPUSCULAR HGB CONC 32 g/dl (33.0-37.0); MEAN PLATELET VOLUME 9.8 fl (7.4-10.4); PLATELET COUNT 292 K/mm3 (130-400); RED BLOOD COUNT 4.48 M/mm3 (4.20-5.60); REDCELL DISTRIBUTION WIDTH-CV 13.1 % (11.5-14.5)
[2022-01-08 07:06] LABS: BAND 3 % (0-10); EOSINOPHIL 8 % (0-4); LYMPHOCYTE 24 % (20.0-51.0); MYELOCYTE 3 % (0-0)
[2022-01-08 07:07] LABS: HYPOCHROMIA 1+; PLATELET ESTIMATE NORMAL (NORMAL)
[2022-01-08 07:08] LABS: NEUTROPHILS 54 % (42.0-75.2)
[2022-01-08 07:13] LABS: ALBUMIN 3.2 gm/dL (3.4-4.8); BILIRUBIN,TOTAL 0.5 mg/dL (0.2-1.2); CALCIUM 8.6 mg/dL (8.4-10.2); CREATININE, serum 1.03 mg/dL (0.72-1.25); POTASSIUM 4.2 mmol/L (3.5-4.5)
[2022-01-08 07:43] VITALS: BP 121/67; PULSE 84; TEMP 97.9
--- NOTE | 2022-01-08 08:30 | NUR ---
Pt. sitting up in bed. Pt. is A&OX3, assessment complete. PICC to rt. upper arm patent. Pt. denies pain or other needs, call light within reach.
--- NOTE | 2022-01-08 09:12 | NUR ---
*late entry, 01/07* This SW had contacted the patient's again to discuss the IV antibiotics and the options on where he could receive them. The patient's , Kendra, states that she has cared for the patient's ramos catheter at home and would prefer to administer the IV antibiotics to the patient herself. She would prefer not to drive to [place] or [place]. Kendra is agreeable to using [facility] and she states that they used to have [facility], but the nurse they liked, no longer works there. She states that she has heard of [facility] and would prefer to use them. This SW contacted and faxed the IV antibiotic script to Bertha at [facility]. Bertha reports that they can get the antibiotics delivered to the patient's home tonight and she will be up to the the hospital this afternoon to provide education to the patient's . YIMI updated Ronald at [facility]. Ronald confirms they can accept the patient and will visit the patient tomorrow at 0900. YIMI contacted and reviewed the above with the patient's , Kendra. Kendra is in agreement to the plan. YIMI updated the patient's RN. The patient is to discharge back home with his today, 01/08, with home health services for custodial/PT/OT from [facility] and IV antibiotics from [facility]. YIMI faxed orders to [facility] and [facility]. No additional needs at this time.
--- NOTE | 2022-01-08 15:21 | NUR ---
Pt. has med discharge criteria. Pt. and given discharge paperwork. Reviewed New meds, home meds, changed meds, education, follow-up appointments, and home health orders. Pt. and voice understanding. Pt. going home with PICC line, eduated on care, pt. and voice understanding. Suprapubic catheter clamped per pt. request, this is a chronic ramos and pt. only wears a bag at night. Pt. escorted out by LASHAWN NG
== END 2022-01-08 15:15 | disposition home health service (06) | DRG 659 ==
LOC: COL.ER 16:23 → SURG 20:23
PROVIDERS: Hospitalist; Nurse Practitioner; Nurse Practitioner Family; Urology; ADMIT Internal Medicine
PROC: 0T778DZ Dilation of Left Ureter with Intraluminal Device, Via Natural or Artificial Opening Endoscopic (ICD-10-PCS; principal; 2022-01-02 21:15)
PROC: BT1F1ZZ Fluoroscopy of Left Kidney, Ureter and Bladder using Low Osmolar Contrast (ICD-10-PCS; 2022-01-02 21:15)
PROC: 0XQRXZZ Repair Left Middle Finger, External Approach (ICD-10-PCS; 2022-01-06)
PROC: 02HV33Z Insertion of Infusion Device into Superior Vena Cava, Percutaneous Approach (ICD-10-PCS; 2022-01-07)
DX: T83.511A Infection and inflammatory reaction due to indwelling urethral catheter, initial encounter (principal); A41.9 Sepsis, unspecified organism; I21.A1 Myocardial infarction type 2; K72.00 Acute and subacute hepatic failure without coma; N13.6 Pyonephrosis; E87.1 Hypo-osmolality and hyponatremia; G37.3 Acute transverse myelitis in demyelinating disease of central nervous system; N17.9 Acute kidney failure, unspecified; E87.20 Acidosis, unspecified; I50.32 Chronic diastolic (congestive) heart failure; Z66 Do not resuscitate; J44.9 Chronic obstructive pulmonary disease, unspecified; K21.9 Gastro-esophageal reflux disease without esophagitis; E78.5 Hyperlipidemia, unspecified; F32.A Depression, unspecified; Z20.822 Contact with and (suspected) exposure to COVID-19; S61.213A Laceration without foreign body of left middle finger without damage to nail, initial encounter; F43.10 Post-traumatic stress disorder, unspecified; F41.1 Generalized anxiety disorder; N31.9 Neuromuscular dysfunction of bladder, unspecified; G62.9 Polyneuropathy, unspecified; E87.6 Hypokalemia; G47.33 Obstructive sleep apnea (adult) (pediatric); I11.0 Hypertensive heart disease with heart failure; B95.8 Unspecified staphylococcus as the cause of diseases classified elsewhere; L89.152 Pressure ulcer of sacral region, stage 2; I34.0 Nonrheumatic mitral (valve) insufficiency; M62.81 Muscle weakness (generalized); R19.7 Diarrhea, unspecified; Y84.6 Urinary catheterization as the cause of abnormal reaction of the patient, or of later complication, without mention of misadventure at the time of the procedure; G89.29 Other chronic pain; M54.9 Dorsalgia, unspecified; Z79.82 Long term (current) use of aspirin; Z88.2 Allergy status to sulfonamides; Z85.828 Personal history of other malignant neoplasm of skin; Z87.891 Personal history of nicotine dependence; Z90.49 Acquired absence of other specified parts of digestive tract; Y92.89 Other specified places as the place of occurrence of the external cause
CPT/HCPCS: C1751; C1769; C2617; J0690; J0692; J0696; J1100; J2405; J2704; J3010; J3370; J3475; J3480; J7030; J7040; J7050; J7120; Q9967

== ENCOUNTER 2023-02-04 15:30 | Outpatient (RCR) | payer MEDICARE, OTHER ==
[~2023-02-04 15:30] MED LIST changes: +AMOXICILLIN 8751 TAB PO; +CVS SPECTRAVIT1 EA15 PO; +K-TAB20 PO; +KLONOPIN 1MG1 MG PO; +LAMICTAL 100MG100 MG PO; +MAXIPIME2 GM IV; +REQUIP 0.5MG0.5 MG PO; +STIOLTO RESPIMAT4 GM INH; +UREX1 GM PO; +WELLBUTRIN XL300 M1 PO
== END 2023-02-13 | disposition home or self-care (01) ==
LOC: MKS.ESL.PT
DX: R29.6 Repeated falls (principal)

== ENCOUNTER 2023-03-04 14:00 | Outpatient (RCR) | payer MEDICARE, OTHER ==
[2023-03-26] MEDS ORDERED: PERCOCET 325 MG1 TA2 PO (21:49)
[2023-03-26] MEDS ORDERED: COLACE 100100 MG/CAP PO (21:49)
== END 2023-03-16 | disposition home or self-care (01) ==
LOC: MKS.ESL.PT
DX: R29.6 Repeated falls (principal)

== ENCOUNTER → 2024-01-15 | Outpatient (RCR) | payer MEDICARE, OTHER ==
[~2024-01-15] MED LIST changes: +PERCOCET 325 MG1 TA2 PO
== END | disposition home or self-care (01) ==
LOC: MKS.ESL.PT
DX: I87.1 Compression of vein (principal)

== ENCOUNTER 2024-02-05 13:30 | Outpatient (RCR) | payer MEDICARE, OTHER | END 2024-02-14 | disposition home or self-care (01) | LOC: MKS.ESL.PT | DX: I87.1 Compression of vein (principal) ==